=== PATIENT | male | born 1970 | race Caucasian/White ===

== ENCOUNTER 2017-03-12 11:17 | Emergency (ER) | payer SELFPAY ==
[2017-03-12 12:54] VITALS: BP 119/75
== END 2017-03-12 18:04 | disposition left against medical advice (07) ==
LOC: ED 11:17
DX: M54.9 Dorsalgia, unspecified (principal); Z53.21 Procedure and treatment not carried out due to patient leaving prior to being seen by health care provider

== ENCOUNTER 2017-08-18 08:48 | Emergency (ER) | payer MEDICAID ==
--- NOTE | 2017-08-18 10:15 | Emergency Department Report ---
ED Psych HPI - General Chief Complaint: Psych Stated Complaint: [facility] Time Seen by Provider: 08/18/17 09:37 Source: patient, police, EMS Mode of arrival: Ambulatory - History of Present Illness Initial Comments: Mr. Linares presents via EMS. Police were called to a [employer]. Due to odd behavior, he was brought to ER. He denies any symptoms. He continues to ask from something to eat. MD Complaint: altered mental status -: unknown Associated Psychiatric Symptoms: auditory hallucinations, visual hallucinations , delusions - Related Data Allergies Allergy/AdvReac Type Severity Reaction Status Date / Time No Known Allergies Allergy Unverified 03/12/17 12:48 ED Review of Systems ROS: Stated complaint: [facility] Other details as noted in HPI Comment: All other systems reviewed and negative Constitutional: denies: fever, malaise Cardiovascular: denies: chest pain Gastrointestinal: denies: abdominal pain Neurological: denies: headache ED Past Medical Hx - Past Medical History Additional medical history: Back - Social History Smoking Status: Never Smoker Substance Use Type: None ED Physical Exam - General General appearance: alert, in no apparent distress, other (disheveled, dirty clothing, poor hygiene) - Head Head exam: Present: atraumatic, normocephalic - Eye Eye exam: Present: normal appearance - ENT ENT exam: Present: mucous membranes moist - Neck Neck exam: Present: normal inspection - Respiratory Respiratory exam: Present: normal lung sounds bilaterally. Absent: respiratory distress, wheezes, rales, rhonchi - Cardiovascular Cardiovascular Exam: Present: regular rate, normal rhythm, normal heart sounds. Absent: systolic murmur, diastolic murmur, rubs, gallop - GI/Abdominal GI/Abdominal exam: Present: soft, normal bowel sounds. Absent: distended, tenderness, guarding, rebound - Rectal Rectal exam: Present: deferred - Extremities Exam Extremities exam: Present: normal inspection - Back Exam Back exam: Present: normal inspection - Neurological Exam Neurological exam: Present: alert, altered, other (oriented to name situation obviously responding to internal stimuli) - Psychiatric Psychiatric exam: Present: normal affect, normal mood, other (delusional disorganized speech ) - Skin Skin exam: Present: warm, dry, intact, normal color. Absent: rash ED Course Vital Signs 08/18/17 09:18 Temperature 97.3 F L Pulse Rate 100 H Respiratory 18 Rate Blood Pressure 103/81 O2 Sat by Pulse 96 Oximetry ED Medical Decision Making - Lab Data Result diagrams: 08/18/17 13:59 08/18/17 13:59 Laboratory Results - last 24 hr 08/18/17 08/18/17 08/18/17 13:59 13:59 13:59 WBC RBC Hgb Hct MCV MCH MCHC RDW Plt Count Lymph % (Auto) [place] % (Auto) Eos % (Auto) Baso % (Auto) Lymph # [place] # Eos # Baso # Seg Neutrophils % Seg Neutrophils # Sodium 143 Potassium 4.6 Chloride 103.4 Carbon Dioxide 27 Anion Gap 17 BUN 10 Creatinine 0.8 Estimated GFR > 60 BUN/Creatinine Ratio 13 Glucose 100 Calcium 8.8 Urine Color Urine Turbidity Urine pH Ur Specific [place] Urine Protein Urine Glucose (UA) Urine Ketones Urine Blood Urine Nitrite Urine Bilirubin Urine Urobilinogen Ur Leukocyte Esterase Urine WBC (Auto) Urine RBC (Auto) U Epithel Cells (Auto) Urine Mucus Salicylates < 0.3 L Urine Opiates Screen Urine Methadone Screen Acetaminophen < 5.0 L Ur Barbiturates Screen Ur Phencyclidine Scrn Ur Amphetamines Screen U Benzodiazepines Scrn Urine Cocaine Screen U Marijuana (THC) Screen Drugs of Abuse Note Plasma/Serum Alcohol 08/18/17 08/18/17 08/18/17 13:59 13:59 Unknown WBC 7.8 RBC 5.55 H Hgb 13.2 Hct 42.5 MCV 77 L MCH 24 L MCHC 31 L RDW 14.8 Plt Count 329 Lymph % (Auto) 20.2 [place] % (Auto) 6.2 Eos % (Auto) 2.2 Baso % (Auto) 0.6 Lymph # 1.6 [place] # 0.5 Eos # 0.2 Baso # 0.0 Seg Neutrophils % 70.8 H Seg Neutrophils # 5.5 Sodium Potassium Chloride Carbon Dioxide Anion Gap BUN Creatinine Estimated GFR BUN/Creatinine Ratio Glucose Calcium Urine Color Yellow Urine Turbidity Clear Urine pH 8.0 H Ur Specific [place] 1.020 Urine Protein <15 mg/dl Urine Glucose (UA) Neg Urine Ketones Neg Urine Blood Neg Urine Nitrite Neg Urine Bilirubin Neg Urine Urobilinogen 2.0 Ur Leukocyte Esterase Neg Urine WBC (Auto) 1.0 Urine RBC (Auto) 1.0 U Epithel Cells (Auto) < 1.0 Urine Mucus Few Salicylates Urine Opiates Screen Urine Methadone Screen Acetaminophen Ur Barbiturates Screen Ur Phencyclidine Scrn Ur Amphetamines Screen U Benzodiazepines Scrn Urine Cocaine Screen U Marijuana (THC) Screen Drugs of Abuse Note Plasma/Serum Alcohol < 0.01 08/18/17 Unknown WBC RBC Hgb Hct MCV MCH MCHC RDW Plt Count Lymph % (Auto) [place] % (Auto) Eos % (Auto) Baso % (Auto) Lymph # [place] # Eos # Baso # Seg Neutrophils % Seg Neutrophils # Sodium Potassium Chloride Carbon Dioxide Anion Gap BUN Creatinine Estimated GFR BUN/Creatinine Ratio Glucose Calcium Urine Color Urine Turbidity Urine pH Ur Specific [place] Urine Protein Urine Glucose (UA) Urine Ketones Urine Blood Urine Nitrite Urine Bilirubin Urine Urobilinogen Ur Leukocyte Esterase Urine WBC (Auto) Urine RBC (Auto) U Epithel Cells (Auto) Urine Mucus Salicylates Urine Opiates Screen Presumptive negative Urine Methadone Screen Presumptive negative Acetaminophen Ur Barbiturates Screen Presumptive negative Ur Phencyclidine Scrn Presumptive negative Ur Amphetamines Screen Presumptive negative U Benzodiazepines Scrn Presumptive negative Urine Cocaine Screen Presumptive negative U Marijuana (THC) Screen Presumptive negative Drugs of Abuse Note Disclamer Plasma/Serum Alcohol - Medical Decision Making Mr. Linares presents with acute psychosis with delusional thoughts and hallucinations. I suspect homelessness and baseline mental illness. He does not appear to have a medical condition as the cause of psychosis. Placed on 1013 involuntary hold with appropriate precautions. Patient is medically clear for psychiatric care. He will be transferred to inpatient psychiatric facility. Critical care attestation.: If time is entered above; I have spent that time in minutes in the direct care of this critically ill patient, excluding procedure time. ED Disposition Clinical Impression: Acute psychosis Disposition: [id number]/TX-70 ANOTHER TYPE HLTHCARE Is pt being admited?: No Does the pt Need Aspirin: No Condition: Stable Time of Disposition: 14:45
[2017-08-18 10:22] LABS: Bilirubin,Urine NEG (Negative); Blood,Urine NEG (Negative); Color,Urine Yellow (Yellow); Mucus,Urine FEW /HPF; Protein,Urine <15 mg/dL mg/dL (Negative)
[2017-08-18 10:30] LABS: Amphetamine Screen,Urine PRESUMPTIVE NEGATIVE; Benzodiazepines Screen,Urine PRESUMPTIVE NEGATIVE; Cannabinoid Screen,Urine PRESUMPTIVE NEGATIVE; Cocaine Screen,Urine PRESUMPTIVE NEGATIVE; Methadone Screen,Urine PRESUMPTIVE NEGATIVE; Opiate Screen,Urine PRESUMPTIVE NEGATIVE
[2017-08-18] MEDS ORDERED: GEODON IM ONE (11:10)
[2017-08-18] MEDS ORDERED: GEODON IM NR (13:00)
[2017-08-18] MEDS ORDERED: WATER FOR INJ (PF) ONE (13:36)
[2017-08-18 14:23] LABS: Basophils % (Auto) 0.6 % (0.0-1.8); Eosinophils # (Auto) 0.2 K/mm3 (0.0-0.4); Eosinophils % (Auto) 2.2 % (0.0-4.3); Hematocrit 42.5 % (35.5-45.6); Hemoglobin 13.2 gm/dl (11.8-15.2); Lymphocytes # (Auto) 1.6 K/mm3 (1.2-5.4); Lymphocytes % (Auto) 20.2 % (13.4-35.0); Mean Corpuscular HGB Conc 31 % (32-34); Mean Corpuscular Volume 77 fl (84-94); Monocytes # (Auto) 0.5 K/mm3 (0.0-0.8); Monocytes % (Auto) 6.2 % (0.0-7.3); Platelet Count 329 K/mm3 (140-440); Red Blood Count 5.55 M/mm3 (3.65-5.03); Red Cell Distribution Width 14.8 % (13.2-15.2)
[2017-08-18 14:24] LABS: Mean Corpuscular Hemoglobin 24 pg (28-32)
[2017-08-18 14:25] LABS: BUN/Creatinine Ratio 13; Blood Urea Nitrogen 10 mg/dL (9-20); Calcium 8.8 mg/dL (8.4-10.2); Hemolysis Index 13
[2017-08-19 14:08] VITALS: BP 110/68
--- NOTE | 2017-08-19 15:29 | Consultation ---
History of Present Illness - Reason for Consult Consult date: 08/19/17 Reason for consult: Mental Health Evaluation Requesting physician: JENNIE PACHECO - Chief Complaint Chief complaint: "I was just smoking" - History of Present Psychiatric Illness 47 y.o. Aa male presenting to the ER for bizarre behavior. Today the patient is calm during the assessment. He was asked about what happened prior to his admission to the ER, he stated, "I was just smoking." The patient had to be redirected several time to keep him on topic. Throughout the interview, the patient answered all the questioned with the same answer, "I was just smoking. " This patient is not a good historian at this time. Medications and Allergies Allergies Allergy/AdvReac Type Severity Reaction Status Date / Time No Known Allergies Allergy Unverified 03/12/17 12:48 Past psychiatric history - Past Medical History Past Medical History: other (Unable to obtain ) Past Surgical History: Other (Unable to obtain) - past Psychiatric treatment and history psychiatric treatment history: Unable to obtain a psh hx and fam psy hx. - Social History Social history: other (Unable to obtain ) Mental Status Exam - Vital signs Last Vital Signs Temp 98.8 F 08/19/17 09:00 Pulse 82 08/19/17 09:00 Resp 18 08/19/17 09:00 BP 110/68 08/19/17 09:00 Pulse Ox 98 08/19/17 09:00 - Exam Narrative exam: MSE: Appearance: calm Behavior: regular eye contact Speech: regular rate and tone Mood: "okay" Affect: congruent to mood Thought Process: disorganized Thought Content: denies SI/HI's and AVH's Motor Activity: ambulatory Cognition: A/O x 3 Insight: poor Judgment: poor Results Result Diagrams: 08/18/17 13:59 08/18/17 13:59 All other labs normal. Assessment and Plan Assessment and plan: Impression: Unspecified Psychosis. Today the patient is calm during the assessment. UDS is negative. DDx: R/O Schizophrenia, R/O Bipolar DO Recommendation/Plan: Continue 1013 with placement to [facility] today.
== END 2017-08-19 10:10 | disposition other institution (70) ==
LOC: ED 08:48 → EEVIPCON 08:48 → ED 08-19 10:10
DX: F23 Brief psychotic disorder (principal)
CPT/HCPCS: 36415; 80048; 80307; 81001; 85025; 96372; 99285; G0480; J3486; 80320

== ENCOUNTER 2018-06-12 19:16 | Emergency (ER) | payer MEDICARE ==
[2018-06-12 19:50] VITALS: BP 115/88
[2018-06-12] MEDS ORDERED: TORADOL IM ONE (20:39)
== END 2018-06-12 21:40 | disposition left against medical advice (07) ==
LOC: ED 19:16
DX: M54.5 Low back pain (principal); Z53.21 Procedure and treatment not carried out due to patient leaving prior to being seen by health care provider

== ENCOUNTER 2018-06-13 05:55 | Emergency (ER) | payer MEDICARE ==
[2018-06-13 06:12] VITALS: BP 120/74
== END 2018-06-13 06:15 | disposition left against medical advice (07) ==
LOC: ED 05:55
DX: M54.9 Dorsalgia, unspecified (principal); Z53.21 Procedure and treatment not carried out due to patient leaving prior to being seen by health care provider

== ENCOUNTER 2020-11-23 10:18 | Inpatient (IN) | payer MEDICARE ==
--- NOTE | 2020-11-24 09:23 | History and Physical Report ---
GP History & Physical - History of Present Illness Date of admission: 11/23/20 Date of Examination: 11/24/20 Reason for Admission: Danger to self, Failure of Outpatient Treatment, Severe anxiety/depression History of Present Illness: Ariana Linares is a 50y/o male patient whom is known to me. During my evaluation of the patient he is acutely psychotic. He appears irritable. He tells me his name is Moustapha and that Ariana is not his name. He is mumbling to himself. He is guarded and appears paranoid. He says to me "tell those drs to stop playing with me." He says "I don't want nothing and aint got nothing." He then looks at me and says "I'm threw." He doesn't respond to me any more. PAST PSYCHIATRIC HISTORY: Unable to assess PAST MEDICAL HISTORY: None reported or document Family Psychiatric History: None reported or documented SOCIAL HISTORY- Unable to assess REVIEW OF SYSTEMS - Unable to assess MENTAL STATUS EXAMINATION- Unable to assess Assessment and Plan (1) Schizophrenia Disorder Current Visit: Yes Status: Acute Treatment Plan Patient admitted for inpatient psychiatric evaluation, medication adjustment and close monitoring The patient's behavior, mood, sleep and appetite will be closely monitored. Patient enrolled in individual and group therapeutic sessions and encouraged to attend. Patient provided with a safe and structured environment. Patient's physical health needs will be addressed by the Hospitalist. Hospitalist Consulted Labs including CBC, CMP, Lipid profile and Hemoglobin A1C levels ordered for baseline reference Social Assessment will be completed and the Chart Clerk will work with patient and family to ensure a suitable and safe disposition Medication adjustment will be made as clinically indicated Restarted home meds Increased Olanzapine 20mg po qhs Usual Wellness Shinto/Preservation: - Start Trazodone 50 mg po QHS & 50 mg po QHS PRN between 10 PM & 2 AM for insomnia - Start Melatonin 5 mg po QHS to promote circadian rhythm The patient agreed on the treatment plan, understood the risk, benefit, alternative treatment, potential consequence of no treatment, and gave informed consent. Estimated days: 6 Post hospital care: primary care provider, psychiatric provider Case staffed with Dr. Hamm Legal Status: Voluntary Reaction to Hospitalization: Accepting Medications and Allergies Allergies Allergy/AdvReac Type Severity Reaction Status Date / Time No Known Allergies Allergy Unverified 03/12/17 12:48 Home Medications Medication Instructions Recorded Confirmed Last Taken Type Benztropine [Cogentin] 1 mg PO BID 09/28/20 11/24/20 Unknown History Paliperidone Palmitate [Invega 156 mg IM QMONTH 09/28/20 11/24/20 Unknown History Sustenna] ARIPiprazole 5 mg PO QDAY #30 tablet 10/11/20 11/24/20 Unknown Rx FLUoxetine [PROzac] 40 mg PO QDAY #60 capsule 10/11/20 11/24/20 Unknown Rx Nicotine [Habitrol] 14 mg TD QDAY #30 patch 10/11/20 11/24/20 Unknown Rx OLANZapine [Zyprexa] 15 mg PO HS #30 10/11/20 11/24/20 Unknown Rx traZODone [Desyrel] 50 mg PO QHS #30 tablet 10/11/20 11/24/20 Unknown Rx Results - Results Labs/Vitals: Laboratory Last Values POC Glucose 99 mg/dL (70-105) 11/23/20 16:15 Last Vital Signs Temp 97.8 F 11/24/20 07:51 Pulse 79 11/24/20 07:51 Resp 18 11/24/20 07:51 BP 114/87 11/24/20 07:51 Pulse Ox 96 11/24/20 07:51 Physical Examination - Constitutional Vitals: Vital Signs Temp Pulse Resp BP Pulse Ox 97.8 F 79 18 114/87 96 11/24/20 07:51 11/24/20 07:51 11/24/20 07:51 11/24/20 07:51 11/24/20 07:51 Temperature -Last 24 Hours Temperature 97.8 F Temperature 97.9 F Temperature 97.9 F Temperature 98.0 F Mental Status Exam - Vital signs Last Vital Signs Temp 97.8 F 11/24/20 07:51 Pulse 79 11/24/20 07:51 Resp 18 11/24/20 07:51 BP 114/87 11/24/20 07:51 Pulse Ox 96 11/24/20 07:51 Physician Certification - Certification Statement Physician Certification Statement: This is an acknowledgement statement that ARIANA LINARES is a 50 year old M who requires inpatient psychiatric admission for treatment which could reasonably be expected to improve the patient's condition for Estimated period of time patient will need to remain in the hospital: [ ] Plan for post-hospital care: [ ]
[2020-11-24] MEDS: FLUoxetine 20 MG CAP PO SCH (10:44)
[2020-11-24] MEDS: BENZTROPINE 1 MG TAB PO SCH ×2 (10:44→23:04)
[2020-11-24] MEDS: ARIPiprazole 5 MG TAB PO SCH (10:44)
[2020-11-24] MEDS: NICOTINE 14 MG/24 HR PATCH TD SCH (10:47)
[2020-11-24] MEDS ORDERED: PALIPERIDONE PALMITATE 156 MG/ML INJ IM SCH (15:00)
[2020-11-24] MEDS ORDERED: NON-FORMULARY EACH (Olanzapine [Zyprexa] 15 MG Tablet) PO SCH (22:00)
[2020-11-24] MEDS: traZODone 50 MG TAB PO SCH (23:02)
[2020-11-25] MEDS: NICOTINE 14 MG/24 HR PATCH TD SCH ×2 (09:44→09:58)
[2020-11-25] MEDS: FLUoxetine 20 MG CAP PO SCH (09:44)
[2020-11-25] MEDS: ARIPiprazole 5 MG TAB PO SCH (09:44)
[2020-11-25] MEDS: BENZTROPINE 1 MG TAB PO SCH ×2 (09:44→22:14)
--- NOTE | 2020-11-25 10:22 | Progress Note ---
Subjective Date of service: 11/25/20 Principal diagnosis: Schizophrenia Subjective Comment: The patient was seen today. He is still acutely psychotic. He is not speaking today. He is nodding and shaking his head to respond. I ask him why is he not speaking, he replies "I can't talk today." He shakes his head when asking if he's suicidal. When I ask him how was he feeling he nods "yes." REVIEW OF SYSTEMS - Unable to assess MENTAL STATUS EXAMINATION- Unable to assess Assessment and Plan (1) Schizophrenia Disorder Current Visit: Yes Status: Acute Treatment Plan Patient admitted for inpatient psychiatric evaluation, medication adjustment and close monitoring The patient's behavior, mood, sleep and appetite will be closely monitored. Patient enrolled in individual and group therapeutic sessions and encouraged to attend. Patient provided with a safe and structured environment. Patient's physical health needs will be addressed by the Hospitalist. Hospitalist Consulted Labs including CBC, CMP, Lipid profile and Hemoglobin A1C levels ordered for baseline reference Social Assessment will be completed and the Residential Child Care Counselor will work with patient and family to ensure a suitable and safe disposition Medication adjustment will be made as clinically indicated Invega Sustenna given yesterday Increased Olanzapine 20mg po qhs yesterday No changes made today Usual Wellness Episcopal/Preservation: - Start Trazodone 50 mg po QHS & 50 mg po QHS PRN between 10 PM & 2 AM for insomnia - Start Melatonin 5 mg po QHS to promote circadian rhythm The patient agreed on the treatment plan, understood the risk, benefit, alternative treatment, potential consequence of no treatment, and gave informed consent. Estimated days: 6 Post hospital care: primary care provider, psychiatric provider Case staffed with Dr. Hamm Medications and Allergies Allergies Allergy/AdvReac Type Severity Reaction Status Date / Time No Known Allergies Allergy Unverified 03/12/17 12:48 Home Medications Medication Instructions Recorded Confirmed Last Taken Type Benztropine [Cogentin] 1 mg PO BID 09/28/20 11/24/20 Unknown History Paliperidone Palmitate [Invega 156 mg IM QMONTH 09/28/20 11/24/20 Unknown History Sustenna] ARIPiprazole 5 mg PO QDAY #30 tablet 10/11/20 11/24/20 Unknown Rx FLUoxetine [PROzac] 40 mg PO QDAY #60 capsule 10/11/20 11/24/20 Unknown Rx Nicotine [Habitrol] 14 mg TD QDAY #30 patch 10/11/20 11/24/20 Unknown Rx OLANZapine [Zyprexa] 15 mg PO HS #30 10/11/20 11/24/20 Unknown Rx traZODone [Desyrel] 50 mg PO QHS #30 tablet 10/11/20 11/24/20 Unknown Rx Active Meds: Active Medications Aripiprazole (Aripiprazole 5 Mg Tab) 5 mg PO QDAY [facility] Last Admin: 11/25/20 09:44 Dose: 5 mg Documented by: Benztropine Mesylate (Benztropine 1 Mg Tab) 1 mg PO BID [facility] Last Admin: 11/25/20 09:44 Dose: 1 mg Documented by: Fluoxetine HCl (Fluoxetine 20 Mg Cap) 40 mg PO QDAY [facility] Last Admin: 11/25/20 09:44 Dose: 40 mg Documented by: Nicotine (Nicotine 14 Mg/24 Hr Patch) 14 mg TD QDAY [facility] Last Admin: 11/25/20 09:58 Dose: Not Given Documented by: Olanzapine (Olanzapine 10 Mg Tab) 20 mg PO QHS [facility] Last Admin: 11/24/20 23:02 Dose: Not Given Documented by: Trazodone HCl (Trazodone 50 Mg Tab) 50 mg PO QHS [facility] Last Admin: 11/24/20 23:02 Dose: Not Given Documented by: Results - Results Labs/Vitals: Laboratory Last Values POC Glucose 91 mg/dL (70-105) 11/24/20 11:49 Last Vital Signs Temp 98.6 F 11/24/20 20:38 Pulse 74 11/24/20 20:38 Resp 18 11/24/20 20:38 BP 119/77 11/24/20 20:38 Pulse Ox 98 11/24/20 20:38
--- NOTE | 2020-11-25 10:32 | Consultation ---
History of Present Illness - Reason for Consult Consult date: 11/25/20 Medical consult Requesting physician: ALYSON SHORT - History of Present Illness 50-year-old male patient was admitted to [facility] psych unit for evaluation and management of suicidal ideation and homicidal ideation without plan or intent. Patient has multiple medical problems hospitalist service was requested for medical consult. Patient has history of hypertension and ongoing tobacco use. Patient denies any chest pain shortness of breath or cough Denies any headache dizziness weakness or numbness No nausea vomiting or abdominal pain Past History Past Medical History: hypertension Past Surgical History: No surgical history Social history: smoking Family history: no significant family history Medications and Allergies Allergies Allergy/AdvReac Type Severity Reaction Status Date / Time No Known Allergies Allergy Unverified 03/12/17 12:48 Home Medications Medication Instructions Recorded Confirmed Last Taken Type Benztropine [Cogentin] 1 mg PO BID 09/28/20 11/24/20 Unknown History Paliperidone Palmitate [Invega 156 mg IM QMONTH 09/28/20 11/24/20 Unknown History Sustenna] ARIPiprazole 5 mg PO QDAY #30 tablet 10/11/20 11/24/20 Unknown Rx FLUoxetine [PROzac] 40 mg PO QDAY #60 capsule 10/11/20 11/24/20 Unknown Rx Nicotine [Habitrol] 14 mg TD QDAY #30 patch 10/11/20 11/24/20 Unknown Rx OLANZapine [Zyprexa] 15 mg PO HS #30 10/11/20 11/24/20 Unknown Rx traZODone [Desyrel] 50 mg PO QHS #30 tablet 10/11/20 11/24/20 Unknown Rx Active Meds: Active Medications Aripiprazole (Aripiprazole 5 Mg Tab) 5 mg PO QDAY [facility] Last Admin: 11/25/20 09:44 Dose: 5 mg Documented by: Benztropine Mesylate (Benztropine 1 Mg Tab) 1 mg PO BID [facility] Last Admin: 11/25/20 09:44 Dose: 1 mg Documented by: Fluoxetine HCl (Fluoxetine 20 Mg Cap) 40 mg PO QDAY [facility] Last Admin: 11/25/20 09:44 Dose: 40 mg Documented by: Nicotine (Nicotine 14 Mg/24 Hr Patch) 14 mg TD QDAY [facility] Last Admin: 11/25/20 09:58 Dose: Not Given Documented by: Olanzapine (Olanzapine 10 Mg Tab) 20 mg PO QHS [facility] Last Admin: 11/24/20 23:02 Dose: Not Given Documented by: Trazodone HCl (Trazodone 50 Mg Tab) 50 mg PO QHS [facility] Last Admin: 11/24/20 23:02 Dose: Not Given Documented by: Review of Systems Constitutional: other (Dizziness off-and-on), no weight loss, no weight gain Ears, nose, mouth and throat: no nasal congestion, no nasal discharge Cardiovascular: no chest pain, no palpitations Respiratory: no cough, no shortness of breath Genitourinary Male: no hematuria, no flank pain Musculoskeletal: no myalgias, no arthritis Integumentary: no rash, no lesions Neurological: no weakness, no seizures, no syncope Psychiatric: no anxiety, no depression Endocrine: no cold intolerance, no heat intolerance Hematologic/Lymphatic: no easy bruising, no easy bleeding Allergic/Immunologic: no urticaria, no allergic rhinitis Exam - Constitutional Vitals: Temp Pulse Resp BP Pulse Ox 98.6 F 74 18 119/77 98 11/24/20 20:38 11/24/20 20:38 11/24/20 20:38 11/24/20 20:38 11/24/20 20:38 General appearance: Present: no acute distress, well-nourished - EENT Eyes: Present: PERRL, EOM intact - Neck Neck: Present: supple, normal ROM - Respiratory Respiratory effort: normal Respiratory: bilateral: diminished, negative: rales, rhonchi, wheezing - Cardiovascular Rhythm: regular Heart Sounds: Present: S1 & S2 - Extremities Extremities: no ischemia, No edema - Abdominal General gastrointestinal: Present: soft, non-tender, non-distended, normal bowel sounds - Integumentary Integumentary: Present: clear, warm - Musculoskeletal Musculoskeletal: strength equal bilaterally, generalized weakness - Psychiatric Psychiatric: appropriate mood/affect, cooperative - Neurologic Neurologic: CNII-XII intact, moves all extremities Assessment and Plan --Hypertension; well controlled Closely monitor, as needed hydralazine if needed --Ongoing tobacco use; Smoking cessation counseling done, advised nicotine patch --DVT prophylaxis; SCDs while resting, increase his ambulation as permitted We will closely monitor the patient and adjust management as needed Plan of care reviewed with the patient and his nurse Thank you for the consultation, will follow the patient along with you
[2020-11-25] MEDS: traZODone 50 MG TAB PO SCH (22:15)
[2020-11-26] MEDS: BENZTROPINE 1 MG TAB PO SCH (09:27)
[2020-11-26] MEDS: FLUoxetine 20 MG CAP PO SCH (09:27)
[2020-11-26] MEDS: ARIPiprazole 5 MG TAB PO SCH (09:27)
[2020-11-26] MEDS: NICOTINE 14 MG/24 HR PATCH TD SCH (09:37)
--- NOTE | 2020-11-26 10:29 | Progress Note ---
Subjective Date of service: 11/26/20 Principal diagnosis: Schizophrenia Subjective Comment: The patient was seen today. He is talking today and more with it. He has his mattress on the floor and is sleeping on it. He says he feels better on the floor. The patient denies SI/HI or hallucinations. REVIEW OF SYSTEMS - Unable to assess MENTAL STATUS EXAMINATION- Unable to assess Assessment and Plan (1) Schizophrenia Disorder Current Visit: Yes Status: Acute Treatment Plan Patient admitted for inpatient psychiatric evaluation, medication adjustment and close monitoring The patient's behavior, mood, sleep and appetite will be closely monitored. Patient enrolled in individual and group therapeutic sessions and encouraged to attend. Patient provided with a safe and structured environment. Patient's physical health needs will be addressed by the Hospitalist. Hospitalist Consulted Labs including CBC, CMP, Lipid profile and Hemoglobin A1C levels ordered for baseline reference Social Assessment will be completed and the Dental Laboratory Assistant will work with patient and family to ensure a suitable and safe disposition Medication adjustment will be made as clinically indicated Invega Sustenna given 11/24 Usual Wellness Scientology/Preservation: - Start Trazodone 50 mg po QHS & 50 mg po QHS PRN between 10 PM & 2 AM for insomnia - Start Melatonin 5 mg po QHS to promote circadian rhythm The patient agreed on the treatment plan, understood the risk, benefit, alternative treatment, potential consequence of no treatment, and gave informed consent. Estimated days: 6 Post hospital care: primary care provider, psychiatric provider Case staffed with Dr. Hamm Medications and Allergies Allergies Allergy/AdvReac Type Severity Reaction Status Date / Time No Known Allergies Allergy Unverified 03/12/17 12:48 Home Medications Medication Instructions Recorded Confirmed Last Taken Type Benztropine [Cogentin] 1 mg PO BID 09/28/20 11/24/20 Unknown History Paliperidone Palmitate [Invega 156 mg IM QMONTH 09/28/20 11/24/20 Unknown History Sustenna] ARIPiprazole 5 mg PO QDAY #30 tablet 10/11/20 11/24/20 Unknown Rx FLUoxetine [PROzac] 40 mg PO QDAY #60 capsule 10/11/20 11/24/20 Unknown Rx Nicotine [Habitrol] 14 mg TD QDAY #30 patch 10/11/20 11/24/20 Unknown Rx OLANZapine [Zyprexa] 15 mg PO HS #30 10/11/20 11/24/20 Unknown Rx traZODone [Desyrel] 50 mg PO QHS #30 tablet 10/11/20 11/24/20 Unknown Rx Active Meds: Active Medications Aripiprazole (Aripiprazole 5 Mg Tab) 5 mg PO QDAY [facility] Last Admin: 11/26/20 09:27 Dose: 5 mg Documented by: Benztropine Mesylate (Benztropine 1 Mg Tab) 1 mg PO BID [facility] Last Admin: 11/26/20 09:27 Dose: 1 mg Documented by: Fluoxetine HCl (Fluoxetine 20 Mg Cap) 40 mg PO QDAY [facility] Last Admin: 11/26/20 09:27 Dose: 40 mg Documented by: Nicotine (Nicotine 14 Mg/24 Hr Patch) 14 mg TD QDAY [facility] Last Admin: 11/26/20 09:37 Dose: Not Given Documented by: Olanzapine (Olanzapine 10 Mg Tab) 20 mg PO QHS [facility] Last Admin: 11/25/20 22:15 Dose: Not Given Documented by: Trazodone HCl (Trazodone 50 Mg Tab) 50 mg PO QHS [facility] Last Admin: 11/25/20 22:15 Dose: Not Given Documented by: Results - Results Labs/Vitals: Laboratory Last Values POC Glucose 91 mg/dL (70-105) 11/24/20 11:49 Last Vital Signs Temp 98.9 F 11/25/20 19:37 Pulse 80 11/25/20 19:37 Resp 18 11/25/20 19:37 BP 108/65 11/25/20 19:37 Pulse Ox 95 11/25/20 19:37
[2020-11-27] MEDS: traZODone 50 MG TAB PO SCH ×2 (00:39→21:09)
[2020-11-27] MEDS: BENZTROPINE 1 MG TAB PO SCH ×3 (00:39→21:09)
--- NOTE | 2020-11-27 09:38 | Progress Note ---
Subjective Date of service: 11/27/20 Principal diagnosis: Schizophrenia Subjective Comment: The patient was seen today. He is smiling and walking around. He denies hallucinations, but he is observed talking to himself. He denies SI/HI. He says he slept on and off. REVIEW OF SYSTEMS Constitutional: Negative for weight loss ENT: Negative for stridor Respiratory: Negative for cough or hemoptysis All other systems reviewed and are negative MENTAL STATUS EXAMINATION General Appearance and Behavior: Age appropriate, good hygiene, wearing appropriate clothes, fair eye contact Cooperation: Participating/engaged Psychomotor Behavior: Psychomotor normal Mood: okay Affect and affective range: Congruent to stated mood Thought Process: goal Directed Thought Content: hallucinations Speech: normal tone and pace Suicidal Ideation: Denies Homicidal Ideation: Denies Hallucinations: auditory Impulse Control: Questionable Insight and Judgment: Limited Memory: Limited Attention: Normal Orientation: Alert and oriented Assessment and Plan (1) Schizophrenia Disorder Current Visit: Yes Status: Acute Treatment Plan Patient admitted for inpatient psychiatric evaluation, medication adjustment and close monitoring The patient's behavior, mood, sleep and appetite will be closely monitored. Patient enrolled in individual and group therapeutic sessions and encouraged to attend. Patient provided with a safe and structured environment. Patient's physical health needs will be addressed by the Hospitalist. Hospit alist Consulted Labs including CBC, CMP, Lipid profile and Hemoglobin A1C levels ordered for baseline reference Social Assessment will be completed and the [employer] Architect will work with patient and family to ensure a suitable and safe disposition Medication adjustment will be made as clinically indicated Invega Sustenna given 11/24 Increased Trazodone 75mg po qhs Usual Wellness Protestant/Preservation: - Start Trazodone 50 mg po QHS & 50 mg po QHS PRN between 10 PM & 2 AM for insomnia - Start Melatonin 5 mg po QHS to promote circadian rhythm The patient agreed on the treatment plan, understood the risk, benefit, alternative treatment, potential consequence of no treatment, and gave informed consent. Estimated days: 3 Post hospital care: primary care provider, psychiatric provider Case staffed with Dr. Hamm Medications and Allergies Allergies Allergy/AdvReac Type Severity Reaction Status Date / Time No Known Allergies Allergy Unverified 03/12/17 12:48 Home Medications Medication Instructions Recorded Confirmed Last Taken Type Benztropine [Cogentin] 1 mg PO BID 09/28/20 11/24/20 Unknown History Paliperidone Palmitate [Invega 156 mg IM QMONTH 09/28/20 11/24/20 Unknown History Sustenna] ARIPiprazole 5 mg PO QDAY #30 tablet 10/11/20 11/24/20 Unknown Rx FLUoxetine [PROzac] 40 mg PO QDAY #60 capsule 10/11/20 11/24/20 Unknown Rx Nicotine [Habitrol] 14 mg TD QDAY #30 patch 10/11/20 11/24/20 Unknown Rx OLANZapine [Zyprexa] 15 mg PO HS #30 10/11/20 11/24/20 Unknown Rx traZODone [Desyrel] 50 mg PO QHS #30 tablet 10/11/20 11/24/20 Unknown Rx Active Meds: Active Medications Aripiprazole (Aripiprazole 5 Mg Tab) [address] [facility] Last Admin: 11/26/20 09:27 Dose: 5 mg Documented by: Benztropine Mesylate (Benztropine 1 Mg Tab) [address] [facility] Last Admin: 11/27/20 00:39 Dose: Not Given Documented by: Fluoxetine HCl (Fluoxetine 20 Mg Cap) [address] [facility] Last Admin: 11/26/20 09:27 Dose: 40 mg Documented by: Nicotine (Nicotine 14 Mg/24 Hr Patch) [address] [facility] Last Admin: 11/26/20 09:37 Dose: Not Given Documented by: Olanzapine (Olanzapine 10 Mg Tab) [address] [facility] Last Admin: 11/27/20 00:39 Dose: Not Given Documented by: Trazodone HCl (Trazodone 50 Mg Tab) [address] [facility] Last Admin: 11/27/20 00:39 Dose: Not Given Documented by: Results - Results Labs/Vitals: Laboratory Last Values POC Glucose 99 mg/dL (70-105) 11/26/20 15:11 Last Vital Signs Temp 97.8 F 11/26/20 19:45 Pulse 75 11/26/20 19:45 Resp 18 11/26/20 19:45 BP 113/73 11/26/20 19:45 Pulse Ox 97 11/26/20 19:45
[2020-11-27] MEDS: FLUoxetine 20 MG CAP PO SCH (10:20)
[2020-11-27] MEDS: ARIPiprazole 5 MG TAB PO SCH (10:20)
[2020-11-27] MEDS: NICOTINE 14 MG/24 HR PATCH TD SCH (10:21)
--- NOTE | 2020-11-27 15:50 | Progress Note ---
Assessment and Plan Assessment and plan: --h/o Hypertension; well controlled Closely monitor, patient did not need any medications --Ongoing tobacco use; Smoking cessation counseling done, advised nicotine patch as needed --DVT prophylaxis; SCDs while resting, increase his ambulation as permitted We will closely monitor the patient and adjust management as needed Plan of care reviewed with the patient and his nurse Thank you for the consultation, will follow the patient along with you History Interval history: I have seen and examined the patient today Patient feels better no new complaints. No new events reported by the nursing staff Vital signs noted Hospitalist Physical - Constitutional Vitals: Temp Pulse Resp BP Pulse Ox 98.4 F 75 18 111/72 98 11/27/20 07:55 11/27/20 07:55 11/27/20 07:55 11/27/20 07:55 11/27/20 07:55 General appearance: Present: no acute distress, well-nourished - EENT Eyes: Present: PERRL, EOM intact - Neck Neck: Present: supple, normal ROM - Respiratory Respiratory effort: normal Respiratory: bilateral: diminished, negative: rales, rhonchi, wheezing - Cardiovascular Rhythm: regular Heart Sounds: Present: S1 & S2 - Extremities Extremities: no ischemia, No edema - Abdominal General gastrointestinal: soft, non-tender, non-distended, normal bowel sounds - Integumentary Integumentary: Present: clear, warm - Psychiatric Psychiatric: appropriate mood/affect, cooperative - Neurologic Neurologic: CNII-XII intact, moves all extremities Results - Labs Labs: Laboratory Last Values POC Glucose 99 mg/dL (70-105) 11/26/20 15:11 Arnold/IV: Voiding Method Toilet Active Medications - Current Medications Current Medications: Generic Name Dose Route Start Last Admin Trade Name Freq PRN Reason Stop Dose Admin Aripiprazole 5 mg 11/24/20 10:00 11/27/20 10:20 Aripiprazole 5 Mg Tab PO 5 mg QDAY YAJAIRA Administration Benztropine Mesylate 1 mg 11/24/20 10:00 11/27/20 10:20 Benztropine 1 Mg Tab PO 1 mg BID YAJAIRA Administration Fluoxetine HCl 40 mg 11/24/20 10:00 11/27/20 10:20 Fluoxetine 20 Mg Cap PO 40 mg QDAY YAJAIRA Administration Nicotine 14 mg 11/24/20 10:00 11/27/20 10:21 Nicotine 14 Mg/24 Hr Patch TD 14 mg QDAY YAJAIRA Administration Olanzapine 20 mg 11/24/20 22:00 11/27/20 00:39 Olanzapine 10 Mg Tab PO Not Given QHS YAJAIRA Trazodone HCl 75 mg 11/27/20 22:00 Trazodone 50 Mg Tab PO QHS YAJAIRA
[2020-11-28] MEDS: BENZTROPINE 1 MG TAB PO SCH ×3 (09:47→21:47)
[2020-11-28] MEDS: ARIPiprazole 5 MG TAB PO SCH (09:47)
[2020-11-28] MEDS: NICOTINE 14 MG/24 HR PATCH TD SCH (09:47)
[2020-11-28] MEDS: FLUoxetine 20 MG CAP PO SCH (09:47)
--- NOTE | 2020-11-28 10:18 | Progress Note ---
Subjective Date of service: 11/28/20 Principal diagnosis: Schizophrenia Subjective Comment: The patient was seen today. He says he's feeling better. He denies SI/HI. He is seen mumbling to himself. REVIEW OF SYSTEMS Constitutional: Negative for weight loss ENT: Negative for stridor Respiratory: Negative for cough or hemoptysis All other systems reviewed and are negative MENTAL STATUS EXAMINATION General Appearance and Behavior: Age appropriate, good hygiene, wearing appropriate clothes, fair eye contact Cooperation: Participating/engaged Psychomotor Behavior: Psychomotor normal Mood: okay Affect and affective range: Congruent to stated mood Thought Process: goal Directed Thought Content: hallucinations Speech: normal tone and pace Suicidal Ideation: Denies Homicidal Ideation: Denies Hallucinations: auditory Impulse Control: Questionable Insight and Judgment: Limited Memory: Limited Attention: Normal Orientation: Alert and oriented Assessment and Plan (1) Schizophrenia Disorder Current Visit: Yes Status: Acute Treatment Plan Patient admitted for inpatient psychiatric evaluation, medication adjustment and close monitoring The patient's behavior, mood, sleep and appetite will be closely monitored. Patient enrolled in individual and group therapeutic sessions and encouraged to attend. Patient provided with a safe and structured environment. Patient's physical health needs will be addressed by the Hospitalist. Hospitalist Consulted Labs including CBC, CMP, Lipid profile and Hemoglobin A1C levels ordered for baseline reference Social Assessment will be completed and the [employer] Reporter will work with patient and family to ensure a suitable and safe disposition Medication adjustment will be made as clinically indicated Invega Sustenna given 11/24 Increased Trazodone 75mg po qhs yesrerday Usual Wellness Presybeterian/Preservation: - Start Trazodone 50 mg po QHS & 50 mg po QHS PRN between 10 PM & 2 AM for insomnia - Start Melatonin 5 mg po QHS to promote circadian rhythm The patient agreed on the treatment plan, understood the risk, benefit, alternative treatment, potential consequence of no treatment, and gave informed consent. Estimated days: 3 Post hospital care: primary care provider, psychiatric provider Case staffed with Dr. Hamm Medications and Allergies Allergies Allergy/AdvReac Type Severity Reaction Status Date / Time No Known Allergies Allergy Unverified 03/12/17 12:48 Home Medications Medication Instructions Recorded Confirmed Last Taken Type Benztropine [Cogentin] 1 mg PO BID 09/28/20 11/24/20 Unknown History Paliperidone Palmitate [Invega 156 mg IM QMONTH 09/28/20 11/24/20 Unknown History Sustenna] ARIPiprazole 5 mg PO QDAY #30 tablet 10/11/20 11/24/20 Unknown Rx FLUoxetine [PROzac] 40 mg PO QDAY #60 capsule 10/11/20 11/24/20 Unknown Rx Nicotine [Habitrol] 14 mg TD QDAY #30 patch 10/11/20 11/24/20 Unknown Rx OLANZapine [Zyprexa] 15 mg PO HS #30 10/11/20 11/24/20 Unknown Rx traZODone [Desyrel] 50 mg PO QHS #30 tablet 10/11/20 11/24/20 Unknown Rx Active Meds: Active Medications Aripiprazole (Aripiprazole 5 Mg Tab) 5 mg PO QDAY [facility] Last Admin: 11/28/20 09:47 Dose: 5 mg Documented by: Benztropine Mesylate (Benztropine 1 Mg Tab) 1 mg PO BID [facility] Last Admin: 11/28/20 09:47 Dose: 1 mg Documented by: Fluoxetine HCl (Fluoxetine 20 Mg Cap) 40 mg PO QDAY [facility] Last Admin: 11/28/20 09:47 Dose: 40 mg Documented by: Nicotine (Nicotine 14 Mg/24 Hr Patch) 14 mg TD QDAY [facility] Last Admin: 11/28/20 09:47 Dose: 14 mg Documented by: Olanzapine (Olanzapine 10 Mg Tab) 20 mg PO QHS [facility] Last Admin: 11/27/20 21:09 Dose: Not Given Documented by: Trazodone HCl (Trazodone 50 Mg Tab) 75 mg PO QHS [facility] Last Admin: 11/27/20 21:09 Dose: Not Given Documented by: Results - Results Labs/Vitals: Laboratory Last Values POC Glucose 99 mg/dL (70-105) 11/26/20 15:11 Last Vital Signs Temp 97.4 F L 11/28/20 07:50 Pulse 85 11/28/20 07:50 Resp 18 11/28/20 07:50 BP 111/75 11/28/20 07:50 Pulse Ox 98 11/28/20 07:50
--- NOTE | 2020-11-28 16:02 | Progress Note ---
Assessment and Plan - Patient Problems (1) Nicotine dependence Current Visit: Yes Status: Acute Qualifiers: Nicotine product type: cigarettes Substance use status: in withdrawal Qualified Code(s): F17.213 - Nicotine dependence, cigarettes, with withdrawal Plan to address problem: Nicotine transdermal patch, supportive care, (2) Hypertension Current Visit: Yes Status: Acute Qualifiers: Hypertension type: primary hypertension Qualified Code(s): I10 - Essential (primary) hypertension Plan to address problem: Monitor blood pressure every shift, History Interval history: 50 YO Male with Nicotine Dependence, HTN admitted [facility] for psychiatric stabilization. No reported nursing events. Patient denies pain. Hospitalist Physical - Constitutional Vitals: Temp Pulse Resp BP Pulse Ox 97.4 F L 85 18 111/75 98 11/28/20 07:50 11/28/20 07:50 11/28/20 07:50 11/28/20 07:50 11/28/20 07:50 General appearance: Present: no acute distress, well-nourished - EENT Eyes: Present: PERRL, EOM intact ENT: hearing intact - Neck Neck: Present: supple - Respiratory Respiratory effort: normal - Cardiovascular Rhythm: regular Heart Sounds: Present: S1 & S2 - Extremities Extremities: no ischemia Peripheral Pulses: within normal limits - Abdominal General gastrointestinal: soft, non-tender, non-distended - Integumentary Integumentary: Present: clear, dry - Psychiatric Psychiatric: cooperative - Neurologic Neurologic: CNII-XII intact Results - Labs Labs: Laboratory Last Values POC Glucose 99 mg/dL (70-105) 11/26/20 15:11 Arnold/IV: Voiding Method Toilet Active Medications - Current Medications Current Medications: Generic Name Dose Route Start Last Admin Trade Name Freq PRN Reason Stop Dose Admin Aripiprazole 5 mg 11/24/20 10:00 11/28/20 09:47 Aripiprazole 5 Mg Tab PO 5 mg QDAY YAJAIRA Administration Benztropine Mesylate 1 mg 11/24/20 10:00 11/28/20 09:47 Benztropine 1 Mg Tab PO 1 mg BID YAJAIRA Administration Fluoxetine HCl 40 mg 11/24/20 10:00 11/28/20 09:47 Fluoxetine 20 Mg Cap PO 40 mg QDAY YAJAIRA Administration Nicotine 14 mg 11/24/20 10:00 11/28/20 09:47 Nicotine 14 Mg/24 Hr Patch TD 14 mg QDAY YAJAIRA Administration Olanzapine 20 mg 11/24/20 22:00 11/27/20 21:09 Olanzapine 10 Mg Tab PO Not Given QHS YAJAIRA Trazodone HCl 75 mg 11/27/20 22:00 11/27/20 21:09 Trazodone 50 Mg Tab PO Not Given QHS YAJAIRA
[2020-11-28] MEDS: traZODone 50 MG TAB PO SCH ×2 (21:43→21:47)
[2020-11-29] MEDS: ARIPiprazole 5 MG TAB PO SCH ×2 (10:25→12:41)
[2020-11-29] MEDS: FLUoxetine 20 MG CAP PO SCH (10:25)
[2020-11-29] MEDS: BENZTROPINE 1 MG TAB PO SCH ×3 (10:25→21:37)
[2020-11-29] MEDS: NICOTINE 14 MG/24 HR PATCH TD SCH (10:25)
--- NOTE | 2020-11-29 10:53 | Progress Note ---
Subjective Date of service: 11/29/20 Principal diagnosis: Schizophrenia Subjective Comment: The patient was seen today. He says he's feeling better. The patient is responding to internal stimuli. He is distracted as I'm speaking with him and mumbling to himself. He denies SI/HI. REVIEW OF SYSTEMS Constitutional: Negative for weight loss ENT: Negative for stridor Respiratory: Negative for cough or hemoptysis All other systems reviewed and are negative MENTAL STATUS EXAMINATION General Appearance and Behavior: Age appropriate, good hygiene, wearing appropriate clothes, fair eye contact Cooperation: Participating/engaged Psychomotor Behavior: Psychomotor normal Mood: okay Affect and affective range: Congruent to stated mood Thought Process: goal Directed Thought Content: hallucinations Speech: normal tone and pace Suicidal Ideation: Denies Homicidal Ideation: Denies Hallucinations: auditory Impulse Control: Questionable Insight and Judgment: Limited Memory: Limited Attention: Normal Orientation: Alert and oriented Assessment and Plan (1) Schizophrenia Disorder Current Visit: Yes Status: Acute Treatment Plan Patient admitted for inpatient psychiatric evaluation, medication adjustment and close monitoring The patient's behavior, mood, sleep and appetite will be closely monitored. Patient enrolled in individual and group therapeutic sessions and encouraged to attend. Patient provided with a safe and structured environment. Patient's physical health needs will be addressed by the Hospitalist. Hospitalist Consulted Labs including CBC, CMP, Lipid profile and Hemoglobin A1C levels ordered for baseline reference Social Assessment will be completed and the Bag Valver will work with patient and family to ensure a suitable and safe disposition Medication adjustment will be made as clinically indicated Invega Sustenna given 11/24 Increased Abilify 7.5mg po daily Usual Wellness Adventist/Preservation: - Start Trazodone 50 mg po QHS & 50 mg po QHS PRN between 10 PM & 2 AM for insomnia - Start Melatonin 5 mg po QHS to promote circadian rhythm The patient agreed on the treatment plan, understood the risk, benefit, alternative treatment, potential consequence of no treatment, and gave informed consent. Estimated days: 3 Post hospital care: primary care provider, psychiatric provider Case staffed with Dr. Hamm Medications and Allergies Allergies Allergy/AdvReac Type Severity Reaction Status Date / Time No Known Allergies Allergy Unverified 03/12/17 12:48 Home Medications Medication Instructions Recorded Confirmed Last Taken Type Benztropine [Cogentin] 1 mg PO BID 09/28/20 11/24/20 Unknown History Paliperidone Palmitate [Invega 156 mg IM QMONTH 09/28/20 11/24/20 Unknown History Sustenna] ARIPiprazole 5 mg PO QDAY #30 tablet 10/11/20 11/24/20 Unknown Rx FLUoxetine [PROzac] 40 mg PO QDAY #60 capsule 10/11/20 11/24/20 Unknown Rx Nicotine [Habitrol] 14 mg TD QDAY #30 patch 10/11/20 11/24/20 Unknown Rx OLANZapine [Zyprexa] 15 mg PO HS #30 10/11/20 11/24/20 Unknown Rx traZODone [Desyrel] 50 mg PO QHS #30 tablet 10/11/20 11/24/20 Unknown Rx Active Meds: Active Medications Aripiprazole (Aripiprazole 5 Mg Tab) 5 mg PO QDAY [facility] Last Admin: 11/29/20 10:25 Dose: 5 mg Documented by: Benztropine Mesylate (Benztropine 1 Mg Tab) 1 mg PO BID [facility] Last Admin: 11/29/20 10:25 Dose: 1 mg Documented by: Fluoxetine HCl (Fluoxetine 20 Mg Cap) 40 mg PO QDAY [facility] Last Admin: 11/29/20 10:25 Dose: 40 mg Documented by: Nicotine (Nicotine 14 Mg/24 Hr Patch) 14 mg TD QDAY [facility] Last Admin: 11/29/20 10:25 Dose: 14 mg Documented by: Olanzapine (Olanzapine 10 Mg Tab) 20 mg PO QHS [facility] Last Admin: 11/28/20 21:47 Dose: Not Given Documented by: Trazodone HCl (Trazodone 50 Mg Tab) 75 mg PO QHS [facility] Last Admin: 11/28/20 21:47 Dose: Not Given Documented by: Results - Results Labs/Vitals: Laboratory Last Values POC Glucose 99 mg/dL (70-105) 11/26/20 15:11 Last Vital Signs Temp 97.5 F L 11/29/20 08:56 Pulse 90 11/29/20 08:57 Resp 18 11/29/20 08:56 BP 116/66 11/29/20 08:56 Pulse Ox 98 11/29/20 08:57
[2020-11-29] MEDS: traZODone 50 MG TAB PO SCH (21:34)
--- NOTE | 2020-11-30 09:39 | Progress Note ---
Subjective Date of service: 11/30/20 Principal diagnosis: Schizophrenia Subjective Comment: The patient was seen today. He is responding to internal stimuli. He is laughing out loud and smiling inappropriately. He denies hallucinations of any kind. I ask him why he's laughing, he says "I feel good. when am I leaving?" The patient says he hears "stuff on a headset." REVIEW OF SYSTEMS Constitutional: Negative for weight loss ENT: Negative for stridor Respiratory: Negative for cough or hemoptysis All other systems reviewed and are negative MENTAL STATUS EXAMINATION General Appearance and Behavior: Age appropriate, good hygiene, wearing a ppropriate clothes, fair eye contact Cooperation: Participating/engaged Psychomotor Behavior: Psychomotor normal Mood: okay Affect and affective range: Congruent to stated mood Thought Process: goal Directed Thought Content: hallucinations Speech: normal tone and pace Suicidal Ideation: Denies Homicidal Ideation: Denies Hallucinations: auditory Impulse Control: Questionable Insight and Judgment: Limited Memory: Limited Attention: Normal Orientation: Alert and oriented Assessment and Plan (1) Schizophrenia Disorder Current Visit: Yes Status: Acute Treatment Plan Patient admitted for inpatient psychiatric evaluation, medication adjustment and close monitoring The patient's behavior, mood, sleep and appetite will be closely monitored. Patient enrolled in individual and group therapeutic sessions and encouraged to attend. Patient provided with a safe and structured environment. Patient's physical health needs will be addressed by the Hospitalist. Hospitalist Consulted Labs including CBC, CMP, Lipid profile and Hemoglobin A1C levels ordered for baseline reference Social Assessment will be completed and the Public Health Advisor will work with patient and family to ensure a suitable and safe disposition Medication adjustment will be made as clinically indicated Invega Sustenna given 11/24 Increased Abilify 7.5mg po daily yesterday No changes today Usual Wellness [facility]/Preservation: - Start Trazodone 50 mg po QHS & 50 mg po QHS PRN between 10 PM & 2 AM for insomnia - Start Melatonin 5 mg po QHS to promote circadian rhythm The patient agreed on the treatment plan, understood the risk, benefit, altern ative treatment, potential consequence of no treatment, and gave informed consent. Estimated days: 3 Post hospital care: primary care provider, psychiatric provider Case staffed with Dr. Hamm Medications and Allergies Allergies Allergy/AdvReac Type Severity Reaction Status Date / Time No Known Allergies Allergy Unverified 03/12/17 12:48 Home Medications Medication Instructions Recorded Confirmed Last Taken Type Benztropine [Cogentin] 1 mg PO BID 09/28/20 11/24/20 Unknown History Paliperidone Palmitate [Invega 156 mg IM QMONTH 09/28/20 11/24/20 Unknown History Sustenna] ARIPiprazole 5 mg PO QDAY #30 tablet 10/11/20 11/24/20 Unknown Rx FLUoxetine [PROzac] 40 mg PO QDAY #60 capsule 10/11/20 11/24/20 Unknown Rx Nicotine [Habitrol] 14 mg TD QDAY #30 patch 10/11/20 11/24/20 Unknown Rx OLANZapine [Zyprexa] 15 mg PO HS #30 10/11/20 11/24/20 Unknown Rx traZODone [Desyrel] 50 mg PO QHS #30 tablet 10/11/20 11/24/20 Unknown Rx Active Meds: Active Medications Aripiprazole (Aripiprazole 5 Mg Tab) 7.5 mg PO QDAY [facility] Last Admin: 11/29/20 12:41 Dose: Not Given Documented by: Benztropine Mesylate (Benztropine 1 Mg Tab) 1 mg PO BID [facility] Last Admin: 11/29/20 21:37 Dose: Not Given Documented by: Fluoxetine HCl (Fluoxetine 20 Mg Cap) 40 mg PO QDAY [facility] Last Admin: 11/29/20 10:25 Dose: 40 mg Documented by: Nicotine (Nicotine 14 Mg/24 Hr Patch) 14 mg TD QDAY [facility] Last Admin: 11/29/20 10:25 Dose: 14 mg Documented by: Olanzapine (Olanzapine 10 Mg Tab) 20 mg PO QHS [facility] Last Admin: 11/29/20 21:37 Dose: Not Given Documented by: Trazodone HCl (Trazodone 50 Mg Tab) 75 mg PO QHS [facility] Last Admin: 11/29/20 21:34 Dose: 75 mg Documented by: Results - Results Labs/Vitals: Laboratory Last Values POC Glucose 99 mg/dL (70-105) 11/26/20 15:11 Last Vital Signs Temp 98.6 F 11/29/20 21:30 Pulse 84 11/29/20 21:30 Resp 18 11/29/20 21:30 BP 114/77 11/29/20 21:30 Pulse Ox 95 11/29/20 21:30
[2020-11-30] MEDS: ARIPiprazole 5 MG TAB PO SCH (10:49)
[2020-11-30] MEDS: FLUoxetine 20 MG CAP PO SCH (10:49)
[2020-11-30] MEDS: BENZTROPINE 1 MG TAB PO SCH ×2 (10:49→21:31)
[2020-11-30] MEDS: NICOTINE 14 MG/24 HR PATCH TD SCH (10:50)
--- NOTE | 2020-11-30 18:51 | Progress Note ---
Assessment and Plan - Patient Problems (1) Nicotine dependence Current Visit: Yes Status: Acute Qualifiers: Nicotine product type: cigarettes Substance use status: in withdrawal Qualified Code(s): F17.213 - Nicotine dependence, cigarettes, with withdrawal Plan to address problem: Nicotine transdermal patch, supportive care, (2) Hypertension Current Visit: Yes Status: Acute Qualifiers: Hypertension type: primary hypertension Qualified Code(s): I10 - Essential (primary) hypertension Plan to address problem: Monitor blood pressure every shift, History Interval history: 50 YO Male with Nicotine Dependence, HTN admitted to [facility] for psychiatric stabilization. No reported nursing events. Patient denies pain. Hospitalist Physical - Constitutional Vitals: Temp Pulse Resp BP Pulse Ox 98.6 F 84 18 114/77 95 11/29/20 21:30 11/29/20 21:30 11/29/20 21:30 11/29/20 21:30 11/29/20 21:30 General appearance: Present: no acute distress, well-nourished - EENT Eyes: Present: PERRL ENT: hearing intact - Neck Neck: Present: supple - Respiratory Respiratory: bilateral: CTA - Cardiovascular Rhythm: regular Heart Sounds: Present: S1 & S2 - Extremities Extremities: no ischemia Peripheral Pulses: within normal limits - Abdominal General gastrointestinal: soft, non-tender, non-distended - Integumentary Integumentary: Present: clear, dry - Psychiatric Psychiatric: cooperative - Neurologic Neurologic: CNII-XII intact Results - Labs Labs: Laboratory Last Values POC Glucose 99 mg/dL (70-105) 11/26/20 15:11 Arnold/IV: Voiding Method Toilet Active Medications - Current Medications Current Medications: Generic Name Dose Route Start Last Admin Trade Name Eduardoq PRN Reason Stop Dose Admin Aripiprazole 7.5 mg 11/29/20 12:00 11/30/20 10:49 Aripiprazole 5 Mg Tab PO 7.5 mg QDAY YAJAIRA Administration Benztropine Mesylate 1 mg 11/24/20 10:00 11/30/20 10:49 Benztropine 1 Mg Tab PO 1 mg BID YAJAIRA Administration Fluoxetine HCl 40 mg 11/24/20 10:00 11/30/20 10:49 Fluoxetine 20 Mg Cap PO 40 mg QDAY YAJAIRA Administration Nicotine 14 mg 11/24/20 10:00 10/14/21 10:50 Nicotine 14 Mg/24 Hr Patch TD 14 mg QDAY YAJAIRA Administration Olanzapine 20 mg 11/24/20 22:00 11/29/20 21:37 Olanzapine 10 Mg Tab PO Not Given QHS YAJAIRA Trazodone HCl 75 mg 11/27/20 22:00 11/29/20 21:34 Trazodone 50 Mg Tab PO 75 mg QHS YAJAIRA Administration Nutrition/Malnutrition Assess - Dietary Evaluation Nutrition/Malnutrition Findings: Nutrition Notes Start: 11/30/20 16:02 Freq: Status: Active Protocol: Document 11/30/20 16:02 GB (Rec: 11/30/20 16:10 GB [id number]) Nutrition Notes Need for Assessment generated from: LOS Initial or Follow up Assessment Other Pertinent Diagnosis schizophrenia Current Diet Cardiac/carbohydrate consistent Labs/Tests 11/29: unremarkable (glucose only) Pertinent Medications reviewed Height 6 ft Weight 90.9 kg [place] Body Weight (kg) 80.90 BMI 27.1 Weight change and time frame admit weight Weight Status Appropriate Subjective/Other Information PO intake recorded at 75-100% Percent of energy/protein needs met: PO intake of meals meets 100% EEN Burn Absent Trauma Absent GI Symptoms None Food Allergy No Skin Integrity/Comment no complications reported Current % PO Good (75-100%) Minimum of two criteria No #1 Nutrition Diagnosis No nutrition diagnosis at this time Comments: Good po, no reported significant weight loss Is patient on ventilator? No Is Patient Ambulatory and/or Out of Bed Yes REE-([facility]-ambulatory/OOB) [ 2342.600 NUTR.[id number]] Kcal/Kg value to use for calculation 21 Approximate Energy Requirements Using 1909 kcal/Kg Calculation Used for Recommendations Kcal/kg Additional Notes Protein: 0.8-1 g/kg @ 91k -91g Fluids: 1ml/kcal or per MD Nutrition Intervention Change Diet Order: continue Nutrition Support: n/a Add Supplement/Snack (indicate name/kcal n/a /protein ) Goal #1 PO intake of meals to continue 75% or greater daily for LOS Follow-Up By: 01/04/21 Revisit per MD consult or patient Sign Off request:
[2020-11-30] MEDS: traZODone 50 MG TAB PO SCH (21:31)
--- NOTE | 2020-12-01 08:28 | Progress Note ---
Subjective Date of service: 12/01/20 Principal diagnosis: Schizophrenia Subjective Comment: 12/01/2020: The patient was seen today, he reports mood as "ok". He denies any current suicidal/homicidal ideation and denies hallucinations. REVIEW OF SYSTEMS Constitutional: Negative for weight loss ENT: Negative for stridor Respiratory: Negative for cough or hemoptysis All other systems reviewed and are negative MENTAL STATUS EXAMINATION General Appearance and Behavior: Age appropriate, good hygiene, wearing appropriate clothes, fair eye contact Cooperation: Participating/engaged Psychomotor Behavior: Psychomotor normal Mood: okay Affect and affective range: Congruent to stated mood Thought Process: goal Directed Thought Content: Denies Speech: normal tone and pace Suicidal Ideation: Denies Homicidal Ideation: Denies Hallucinations: Denies Impulse Control: Questionable Insight and Judgment: Limited Memory: Limited Attention: Normal Orientation: Alert and oriented Assessment and Plan (1) Schizophrenia Disorder Current Visit: Yes Status: Acute Treatment Plan Patient admitted for inpatient psychiatric evaluation, medication adjustment and close monitoring The patient's behavior, mood, sleep and appetite will be closely monitored. Patient enrolled in individual and group therapeutic sessions and encouraged to attend. Patient provided with a safe and structured environment. Patient's physical health needs will be addressed by the Hospitalist. Hospitalist Consulted Labs including CBC, CMP, Lipid profile and Hemoglobin A1C levels ordered for baseline reference Social Assessment will be completed and the Hooker Up will work with patient and family to ensure a suitable and safe disposition Medication adjustment will be made as clinically indicated Invega Sustenna given 11/24 Continue Abilify 7.5mg po daily yesterday No changes today Usual Wellness [facility]/Preservation: - Start Trazodone 50 mg po QHS & 50 mg po QHS PRN between 10 PM & 2 AM for insomnia - Start Melatonin 5 mg po QHS to promote circadian rhythm The patient agreed on the treatment plan, understood the risk, benefit, alternative treatment, potential consequence of no treatment, and gave informed consent. Estimated days: 3 Post hospital care: primary care provider, psychiatric provider Case staffed with Dr. Hamm Medications and Allergies Medications and Allergies Allergies Allergy/AdvReac Type Severity Reaction Status Date / Time No Known Allergies Allergy Unverified 03/12/17 12:48 Home Medications Medication Instructions Recorded Confirmed Last Taken Type Benztropine [Cogentin] 1 mg PO BID 09/28/20 11/24/20 Unknown History Paliperidone Palmitate [Invega 156 mg IM QMONTH 09/28/20 11/24/20 Unknown History Sustenna] ARIPiprazole 5 mg PO QDAY #30 tablet 10/11/20 11/24/20 Unknown Rx FLUoxetine [PROzac] 40 mg PO QDAY #60 capsule 10/11/20 11/24/20 Unknown Rx Nicotine [Habitrol] 14 mg TD QDAY #30 patch 10/11/20 11/24/20 Unknown Rx OLANZapine [Zyprexa] 15 mg PO HS #30 10/11/20 11/24/20 Unknown Rx traZODone [Desyrel] 50 mg PO QHS #30 tablet 10/11/20 11/24/20 Unknown Rx Active Meds: Active Medications Aripiprazole (Aripiprazole 5 Mg Tab) 7.5 mg PO QDAY [facility] Last Admin: 11/30/20 10:49 Dose: 7.5 mg Documented by: Benztropine Mesylate (Benztropine 1 Mg Tab) 1 mg PO BID [facility] Last Admin: 11/30/20 21:31 Dose: 1 mg Documented by: Fluoxetine HCl (Fluoxetine 20 Mg Cap) 40 mg PO QDAY [facility] Last Admin: 11/30/20 10:49 Dose: 40 mg Documented by: Nicotine (Nicotine 14 Mg/24 Hr Patch) 14 mg TD QDAY [facility] Last Admin: 11/30/20 10:50 Dose: 14 mg Documented by: Olanzapine (Olanzapine 10 Mg Tab) 20 mg PO QHS [facility] Last Admin: 11/30/20 21:32 Dose: 20 mg Documented by: Trazodone HCl (Trazodone 50 Mg Tab) 75 mg PO QHS [facility] Last Admin: 11/30/20 21:31 Dose: 75 mg Documented by: Results - Results Labs/Vitals: Laboratory Last Values POC Glucose 99 mg/dL (70-105) 11/26/20 15:11 Last Vital Signs Temp 97.8 F 11/30/20 20:14 Pulse 93 H 11/30/20 20:14 Resp 18 11/30/20 20:14 BP 118/91 11/30/20 20:14 Pulse Ox 99 11/30/20 20:14
[2020-12-01] MEDS: ARIPiprazole 5 MG TAB PO SCH (09:00)
[2020-12-01] MEDS: BENZTROPINE 1 MG TAB PO SCH ×2 (09:01→23:15)
[2020-12-01] MEDS: NICOTINE 14 MG/24 HR PATCH TD SCH (09:02)
[2020-12-01] MEDS: FLUoxetine 20 MG CAP PO SCH (09:04)
[2020-12-01] MEDS: traZODone 50 MG TAB PO SCH (23:08)
--- NOTE | 2020-12-02 09:03 | Progress Note ---
Subjective Date of service: 12/02/20 Principal diagnosis: Schizophrenia Subjective Comment: 12/01/2020: The patient was seen today, he reports mood as "ok". He denies any current suicidal/homicidal ideation and denies hallucinations. 12/02/2020: The patient was seen eating breakfast, he reports doing well. States sleep and appetite as good. He continues to endorse auditory hallucinations stating " voices up in the [place]." REVIEW OF SYSTEMS Constitutional: Negative for weight loss ENT: Negative for stridor Respiratory: Negative for cough or hemoptysis All other systems reviewed and are negative MENTAL STATUS EXAMINATION General Appearance and Behavior: Age appropriate, good hygiene, wearing appropriate clothes, fair eye contact Cooperation: Participating/engaged Psychomotor Behavior: Psychomotor normal Mood: " doing well" Affect and affective range: Congruent to stated mood Thought Process: goal Directed Thought Content: Denies Speech: normal tone and pace Suicidal Ideation: Denies Homicidal Ideation: Denies Hallucinations: Auditory Impulse Control: Questionable Insight and Judgment: Limited Memory: Limited Attention: Normal Orientation: Alert and oriented Assessment and Plan (1) Schizophrenia Disorder Current Visit: Yes Status: Acute Treatment Plan Patient admitted for inpatient psychiatric evaluation, medication adjustment and close monitoring The patient's behavior, mood, sleep and appetite will be closely monitored. Patient enrolled in individual and group therapeutic sessions and encouraged to attend. Patient provided with a safe and structured environment. Patient's physical health needs will be addressed by the Hospitalist. Hospitalist Consulted Labs including CBC, CMP, Lipid profile and Hemoglobin A1C levels ordered for baseline reference Social Assessment will be completed and the Marine Railway Operator will work with patient and family to ensure a suitable and safe disposition Medication adjustment will be made as clinically indicated Invega Sustenna given 11/24 Continue Abilify 7.5mg po daily yesterday No changes today Usual Wellness [facility]/Preservation: - Start Trazodone 50 mg po QHS & 50 mg po QHS PRN between 10 PM & 2 AM for insomnia - Start Melatonin 5 mg po QHS to promote circadian rhythm The patient agreed on the treatment plan, understood the risk, benefit, alternative treatment, potential consequence of no treatment, and gave informed consent. Estimated days: 3 Post hospital care: primary care provider, psychiatric provider Case staffed with Dr. Hamm Medications and Allergies Medications and Allergies Allergies Allergy/AdvReac Type Severity Reaction Status Date / Time No Known Allergies Allergy Unverified 03/12/17 12:48 Home Medications Medication Instructions Recorded Confirmed Last Taken Type Benztropine [Cogentin] 1 mg PO BID 09/28/20 11/24/20 Unknown History Paliperidone Palmitate [Invega 156 mg IM QMONTH 09/28/20 11/24/20 Unknown History Sustenna] ARIPiprazole 5 mg PO QDAY #30 tablet 10/11/20 11/24/20 Unknown Rx FLUoxetine [PROzac] 40 mg PO QDAY #60 capsule 10/11/20 11/24/20 Unknown Rx Nicotine [Habitrol] 14 mg TD QDAY #30 patch 10/11/20 11/24/20 Unknown Rx OLANZapine [Zyprexa] 15 mg PO HS #30 10/11/20 11/24/20 Unknown Rx traZODone [Desyrel] 50 mg PO QHS #30 tablet 10/11/20 11/24/20 Unknown Rx Active Meds: Active Medications Aripiprazole (Aripiprazole 5 Mg Tab) 7.5 mg PO QDAY [facility] Last Admin: 12/01/20 09:00 Dose: 7.5 mg Documented by: Benztropine Mesylate (Benztropine 1 Mg Tab) 1 mg PO BID [facility] Last Admin: 12/01/20 23:15 Dose: Not Given Documented by: Fluoxetine HCl (Fluoxetine 20 Mg Cap) 40 mg PO QDAY [facility] Last Admin: 12/01/20 09:04 Dose: 40 mg Documented by: Nicotine (Nicotine 14 Mg/24 Hr Patch) 14 mg TD QDAY [facility] Last Admin: 12/01/20 09:02 Dose: 14 mg Documented by: Olanzapine (Olanzapine 10 Mg Tab) 20 mg PO QHS [facility] Last Admin: 12/01/20 23:15 Dose: Not Given Documented by: Trazodone HCl (Trazodone 50 Mg Tab) 75 mg PO QHS [facility] Last Admin: 12/01/20 23:08 Dose: Not Given Documented by: Results - Results Labs/Vitals: Laboratory Last Values POC Glucose 99 mg/dL (70-105) 11/26/20 15:11 Last Vital Signs Temp 99.2 F 12/01/20 19:53 Pulse 103 H 12/01/20 19:53 Resp 16 12/01/20 19:53 BP 109/70 12/01/20 19:53 Pulse Ox 94 12/01/20 19:53
[2020-12-02] MEDS: BENZTROPINE 1 MG TAB PO SCH ×2 (10:35→21:57)
[2020-12-02] MEDS: ARIPiprazole 5 MG TAB PO SCH (10:35)
[2020-12-02] MEDS: FLUoxetine 20 MG CAP PO SCH (10:35)
[2020-12-02] MEDS: NICOTINE 14 MG/24 HR PATCH TD SCH (10:35)
[2020-12-02] MEDS: traZODone 50 MG TAB PO SCH (21:57)
--- NOTE | 2020-12-03 08:02 | Progress Note ---
Subjective Date of service: 12/03/20 Principal diagnosis: Schizophrenia Subjective Comment: 12/01/2020: The patient was seen today, he reports mood as "ok". He denies any current suicidal/homicidal ideation and denies hallucinations. 12/02/2020: The patient was seen eating breakfast, he reports doing well. States sleep and appetite as good. He continues to endorse auditory hallucinations stating " voices up in the [place]." 12/03/2020:The patient was seen eating breakfast, he reports doing well. States sleep and appetite as good. He continues to endorse auditory hallucinations REVIEW OF SYSTEMS Constitutional: Negative for weight loss ENT: Negative for stridor Respiratory: Negative for cough or hemoptysis All other systems reviewed and are negative MENTAL STATUS EXAMINATION General Appearance and Behavior: Age appropriate, good hygiene, wearing appropriate clothes, fair eye contact Cooperation: Participating/engaged Psychomotor Behavior: Psychomotor normal Mood: " doing well" Affect and affective range: Congruent to stated mood Thought Process: goal Directed Thought Content: Denies Speech: normal tone and pace Suicidal Ideation: Denies Homicidal Ideation: Denies Hallucinations: Auditory Impulse Control: Questionable Insight and Judgment: Limited Memory: Limited Attention: Normal Orientation: Alert and oriented Assessment and Plan (1) Schizophrenia Disorder Current Visit: Yes Status: Acute Treatment Plan Patient admitted for inpatient psychiatric evaluation, medication adjustment and close monitoring The patient's behavior, mood, sleep and appetite will be closely monitored. Patient enrolled in individual and group therapeutic sessions and encouraged to attend. Patient provided with a safe and structured environment. Patient's physical health needs will be addressed by the Hospitalist. Hospitalist Consulted Labs including CBC, CMP, Lipid profile and Hemoglobin A1C levels ordered for baseline reference Social Assessment will be completed and the Carbide Operator will work with patient and family to ensure a suitable and safe disposition Medication adjustment will be made as clinically indicated Invega Sustenna given 11/24 Continue Abilify 7.5mg po daily yesterday No changes today Usual Wellness [facility]/Preservation: - Start Trazodone 50 mg po QHS & 50 mg po QHS PRN between 10 PM & 2 AM for insomnia - Start Melatonin 5 mg po QHS to promote circadian rhythm The patient agreed on the treatment plan, understood the risk, benefit, alternative treatment, potential consequence of no treatment, and gave informed consent. Estimated days: 3 Post hospital care: primary care provider, psychiatric provider Case staffed with Dr. Hamm Medications and Allergies Medications and Allergies Medications and Allergies Allergies Allergy/AdvReac Type Severity Reaction Status Date / Time No Known Allergies Allergy Unverified 03/12/17 12:48 Home Medications Medication Instructions Recorded Confirmed Last Taken Type Benztropine [Cogentin] 1 mg PO BID 09/28/20 11/24/20 Unknown History Paliperidone Palmitate [Invega 156 mg IM QMONTH 09/28/20 11/24/20 Unknown History Sustenna] ARIPiprazole 5 mg PO QDAY #30 tablet 10/11/20 11/24/20 Unknown Rx FLUoxetine [PROzac] 40 mg PO QDAY #60 capsule 10/11/20 11/24/20 Unknown Rx Nicotine [Habitrol] 14 mg TD QDAY #30 patch 10/11/20 11/24/20 Unknown Rx OLANZapine [Zyprexa] 15 mg PO HS #30 10/11/20 11/24/20 Unknown Rx traZODone [Desyrel] 50 mg PO QHS #30 tablet 10/11/20 11/24/20 Unknown Rx Active Meds: Active Medications Aripiprazole (Aripiprazole 5 Mg Tab) 7.5 mg PO QDAY [facility] Last Admin: 12/02/20 10:35 Dose: 7.5 mg Documented by: Benztropine Mesylate (Benztropine 1 Mg Tab) 1 mg PO BID [facility] Last Admin: 12/02/20 21:57 Dose: Not Given Documented by: Fluoxetine HCl (Fluoxetine 20 Mg Cap) 40 mg PO QDAY [facility] Last Admin: 12/02/20 10:35 Dose: 40 mg Documented by: Nicotine (Nicotine 14 Mg/24 Hr Patch) 14 mg TD QDAY [facility] Last Admin: 12/02/20 10:35 Dose: 14 mg Documented by: Olanzapine (Olanzapine 10 Mg Tab) 20 mg PO QHS [facility] Last Admin: 12/02/20 21:57 Dose: Not Given Documented by: Trazodone HCl (Trazodone 50 Mg Tab) 75 mg PO QHS [facility] Last Admin: 12/02/20 21:57 Dose: Not Given Documented by: Results - Results Labs/Vitals: Laboratory Last Values POC Glucose 99 mg/dL (70-105) 11/26/20 15:11 Last Vital Signs Temp 100.5 F H 12/02/20 19:52 Pulse 79 12/02/20 19:52 Resp 16 12/02/20 19:52 BP 122/85 12/02/20 19:52 Pulse Ox 98 12/02/20 19:52
[2020-12-03] MEDS: FLUoxetine 20 MG CAP PO SCH (10:24)
[2020-12-03] MEDS: ARIPiprazole 5 MG TAB PO SCH (10:24)
[2020-12-03] MEDS: BENZTROPINE 1 MG TAB PO SCH ×2 (10:24→22:14)
[2020-12-03] MEDS: NICOTINE 14 MG/24 HR PATCH TD SCH (10:25)
--- NOTE | 2020-12-03 12:25 | Progress Note ---
Assessment and Plan - Patient Problems (1) Nicotine dependence Current Visit: Yes Status: Acute Qualifiers: Nicotine product type: cigarettes Substance use status: in withdrawal Qualified Code(s): F17.213 - Nicotine dependence, cigarettes, with withdrawal Plan to address problem: Nicotine transdermal patch, supportive care, (2) Hypertension Current Visit: Yes Status: Acute Qualifiers: Hypertension type: primary hypertension Qualified Code(s): I10 - Essential (primary) hypertension Plan to address problem: Monitor blood pressure every shift, History Interval history: 50 YO Male with Nicotine Dependence, HTN admitted [facility] for psychiatric stabilization. No reported nursing events. Patient denies pain. Hospitalist Physical - Constitutional Vitals: Temp Pulse Resp BP Pulse Ox 98.6 F 90 18 113/81 98 12/03/20 08:01 12/03/20 08:01 12/03/20 08:01 12/03/20 08:01 12/03/20 08:01 General appearance: Present: no acute distress, well-nourished - EENT Eyes: Present: PERRL, EOM intact ENT: hearing intact - Neck Neck: Present: supple - Respiratory Respiratory: bilateral: CTA - Cardiovascular Rhythm: regular Heart Sounds: Present: S1 & S2 - Extremities Extremities: no ischemia Peripheral Pulses: within normal limits - Abdominal General gastrointestinal: soft, non-tender, non-distended - Integumentary Integumentary: Present: clear, dry - Psychiatric Psychiatric: cooperative - Neurologic Neurologic: CNII-XII intact Results - Labs Labs: Laboratory Last Values POC Glucose 99 mg/dL (70-105) 11/26/20 15:11 Arnold/IV: Voiding Method Toilet Active Medications - Current Medications Current Medications: Generic Name Dose Route Start Last Admin Trade Name Freq PRN Reason Stop Dose Admin Aripiprazole 7.5 mg 11/29/20 12:00 12/03/20 10:24 Aripiprazole 5 Mg Tab PO 7.5 mg QDAY YAJAIRA Administration Benztropine Mesylate 1 mg 11/24/20 10:00 12/03/20 10:24 Benztropine 1 Mg Tab PO 1 mg BID YAJAIRA Administration Fluoxetine HCl 40 mg 11/24/20 10:00 12/03/20 10:24 Fluoxetine 20 Mg Cap PO 40 mg QDAY YAJAIRA Administration Nicotine 14 mg 11/24/20 10:00 12/03/20 10:25 Nicotine 14 Mg/24 Hr Patch TD 14 mg QDAY YAJAIRA Administration Olanzapine 20 mg 11/24/20 22:00 12/02/20 21:57 Olanzapine 10 Mg Tab PO Not Given QHS YAJAIRA Trazodone HCl 75 mg 11/27/20 22:00 12/02/20 21:57 Trazodone 50 Mg Tab PO Not Given QHS YAJAIRA Nutrition/Malnutrition Assess - Dietary Evaluation Nutrition/Malnutrition Findings: Nutrition Notes Start: 11/30/20 16:02 Freq: Status: Active Protocol: Document 11/30/20 16:02 GB (Rec: 11/30/20 16:10 GB [id number]) Nutrition Notes Need for Assessment generated from: LOS Initial or Follow up Assessment Other Pertinent Diagnosis schizophrenia Current Diet Cardiac/carbohydrate consistent Labs/Tests 11/29: unremarkable (glucose only) Pertinent Medications reviewed Height 6 ft Weight 90.9 kg [place] Body Weight (kg) 80.90 BMI 27.1 Weight change and time frame admit weight Weight Status Appropriate Subjective/Other Information PO intake recorded at 75-100% Percent of energy/protein needs met: PO intake of meals meets 100% EEN Burn Absent Trauma Absent GI Symptoms None Food Allergy No Skin Integrity/Comment no complications reported Current % PO Good (75-100%) Minimum of two criteria No #1 Nutrition Diagnosis No nutrition diagnosis at this time Comments: Good po, no reported significant weight loss Is patient on ventilator? No Is Patient Ambulatory and/or Out of Bed Yes REE-([facility]-ambulatory/OOB) [ 2342.600 NUTR.MSJOOB] Kcal/Kg value to use for calculation 21 Approximate Energy Requirements Using 1909 kcal/Kg Calculation Used for Recommendations Kcal/kg Additional Notes Protein: 0.8-1 g/kg @ 91k -91g Fluids: 1ml/kcal or per MD Nutrition Intervention Change Diet Order: continue Nutrition Support: n/a Add Supplement/Snack (indicate name/kcal n/a /protein ) Goal #1 PO intake of meals to continue 75% or greater daily for LOS Follow-Up By: 01/04/21 Revisit per MD consult or patient Sign Off request:
--- NOTE | 2020-12-03 12:26 | Progress Note ---
Assessment and Plan - Patient Problems (1) Nicotine dependence Current Visit: Yes Status: Acute Qualifiers: Nicotine product type: cigarettes Substance use status: in withdrawal Qualified Code(s): F17.213 - Nicotine dependence, cigarettes, with withdrawal Plan to address problem: Nicotine transdermal patch, supportive care, (2) Hypertension Current Visit: Yes Status: Acute Qualifiers: Hypertension type: primary hypertension Qualified Code(s): I10 - Essential (primary) hypertension Plan to address problem: Monitor blood pressure every shift, History Interval history: 50 YO Male with Nicotine Dependence, HTN admitted [facility] for psychiatric stabilization. No reported nursing events. Patient denies pain. Hospitalist Physical - Constitutional Vitals: Temp Pulse Resp BP Pulse Ox 98.6 F 90 18 113/81 98 12/03/20 08:01 12/03/20 08:01 12/03/20 08:01 12/03/20 08:01 12/03/20 08:01 General appearance: Present: no acute distress, well-nourished - Neck Neck: Present: supple - Respiratory Respiratory effort: normal Respiratory: bilateral: CTA - Cardiovascular Rhythm: regular Heart Sounds: Present: S1 & S2 - Extremities Extremities: no ischemia Peripheral Pulses: within normal limits - Abdominal General gastrointestinal: soft, non-tender, non-distended - Integumentary Integumentary: Present: clear, dry - Psychiatric Psychiatric: cooperative - Neurologic Neurologic: CNII-XII intact Results - Labs Labs: Laboratory Last Values POC Glucose 99 mg/dL (70-105) 11/26/20 15:11 Arnold/IV: Voiding Method Toilet Active Medications - Current Medications Current Medications: Generic Name Dose Route Start Last Admin Trade Name Eduardoq PRN Reason Stop Dose Admin Aripiprazole 7.5 mg 11/29/20 12:00 12/03/20 10:24 Aripiprazole 5 Mg Tab PO 7.5 mg QDAY YAJAIRA Administration Benztropine Mesylate 1 mg 11/24/20 10:00 12/03/20 10:24 Benztropine 1 Mg Tab PO 1 mg BID YAJAIRA Administration Fluoxetine HCl 40 mg 11/24/20 10:00 12/03/20 10:24 Fluoxetine 20 Mg Cap PO 40 mg QDAY YAJAIRA Administration Nicotine 14 mg 11/24/20 10:00 12/03/20 10:25 Nicotine 14 Mg/24 Hr Patch TD 14 mg QDAY YAJAIRA Administration Olanzapine 20 mg 11/24/20 22:00 12/02/20 21:57 Olanzapine 10 Mg Tab PO Not Given QHS YAJAIRA Trazodone HCl 75 mg 11/27/20 22:00 12/02/20 21:57 Trazodone 50 Mg Tab PO Not Given QHS [facility] Nutrition/Malnutrition Assess - Dietary Evaluation Nutrition/Malnutrition Findings: Nutrition Notes Start: 11/30/20 16:02 Freq: Status: Active Protocol: Document 11/30/20 16:02 GB (Rec: 11/30/20 16:10 GB [id number]) Nutrition Notes Need for Assessment generated from: LOS Initial or Follow up Assessment Other Pertinent Diagnosis schizophrenia Current Diet Cardiac/carbohydrate consistent Labs/Tests 11/29: unremarkable (glucose only) Pertinent Medications reviewed Height 6 ft Weight 90.9 kg [place] Body Weight (kg) 80.90 BMI 27.1 Weight change and time frame admit weight Weight Status Appropriate Subjective/Other Information PO intake recorded at 75-100% Percent of energy/protein needs met: PO intake of meals meets 100% EEN Burn Absent Trauma Absent GI Symptoms None Food Allergy No Skin Integrity/Comment no complications reported Current % PO Good (75-100%) Minimum of two criteria No #1 Nutrition Diagnosis No nutrition diagnosis at this time Comments: Good po, no reported significant weight loss Is patient on ventilator? No Is Patient Ambulatory and/or Out of Bed Yes REE-([place]-ambulatory/OOB) [ 2342.600 NUTR.MSJOOB] Kcal/Kg value to use for calculation 21 Approximate Energy Requirements Using 1909 kcal/Kg Calculation Used for Recommendations Kcal/kg Additional Notes Protein: 0.8-1 g/kg @ 91k -91g Fluids: 1ml/kcal or per MD Nutrition Intervention Change Diet Order: continue Nutrition Support: n/a Add Supplement/Snack (indicate name/kcal n/a /protein ) Goal #1 PO intake of meals to continue 75% or greater daily for LOS Follow-Up By: 01/04/21 Revisit per MD consult or patient Sign Off request:
--- NOTE | 2020-12-03 20:04 | Progress Note ---
Assessment and Plan - Patient Problems (1) Nicotine dependence Current Visit: Yes Status: Acute Qualifiers: Nicotine product type: cigarettes Substance use status: in withdrawal Qualified Code(s): F17.213 - Nicotine dependence, cigarettes, with withdrawal Plan to address problem: Nicotine transdermal patch, supportive care, (2) Hypertension Current Visit: Yes Status: Acute Qualifiers: Hypertension type: primary hypertension Qualified Code(s): I10 - Essential (primary) hypertension Plan to address problem: Monitor blood pressure every shift, History Interval history: 50 YO Male with Nicotine Dependence, HTN admitted [facility] for psychiatric stabilization. No reported nursing events. Patient denies pain. Hospitalist Physical - Constitutional Vitals: Temp Pulse Resp BP Pulse Ox 98.6 F 90 18 113/81 98 12/03/20 08:01 12/03/20 08:01 12/03/20 08:01 12/03/20 08:01 12/03/20 08:01 General appearance: Present: no acute distress, well-nourished - EENT Eyes: Present: PERRL, EOM intact ENT: hearing intact - Neck Neck: Present: supple - Respiratory Respiratory effort: normal Respiratory: bilateral: CTA - Cardiovascular Rhythm: regular Heart Sounds: Present: S1 & S2 - Extremities Extremities: no ischemia Peripheral Pulses: within normal limits - Abdominal General gastrointestinal: soft, non-tender, non-distended - Integumentary Integumentary: Present: clear, dry - Psychiatric Psychiatric: cooperative - Neurologic Neurologic: CNII-XII intact Results - Labs Labs: Laboratory Last Values POC Glucose 99 mg/dL (70-105) 11/26/20 15:11 Arnold/IV: Voiding Method Toilet Active Medications - Current Medications Current Medications: Generic Name Dose Route Start Last Admin Trade Name Freq PRN Reason Stop Dose Admin Aripiprazole 7.5 mg 11/29/20 12:00 12/03/20 10:24 Aripiprazole 5 Mg Tab PO 7.5 mg QDAY YAJAIRA Administration Benztropine Mesylate 1 mg 11/24/20 10:00 12/03/20 10:24 Benztropine 1 Mg Tab PO 1 mg BID YAJAIRA Administration Fluoxetine HCl 40 mg 11/24/20 10:00 12/03/20 10:24 Fluoxetine 20 Mg Cap PO 40 mg QDAY YAJAIRA Administration Nicotine 14 mg 11/24/20 10:00 12/03/20 10:25 Nicotine 14 Mg/24 Hr Patch TD 14 mg QDAY YAJAIRA Administration Olanzapine 20 mg 11/24/20 22:00 12/02/20 21:57 Olanzapine 10 Mg Tab PO Not Given QHS YAJAIRA Trazodone HCl 75 mg 11/27/20 22:00 12/02/20 21:57 Trazodone 50 Mg Tab PO Not Given QHS YAJAIRA Nutrition/Malnutrition Assess - Dietary Evaluation Nutrition/Malnutrition Findings: Nutrition Notes Start: 11/30/20 16:02 Freq: Status: Active Protocol: Document 11/30/20 16:02 GB (Rec: 11/30/20 16:10 GB [id number]) Nutrition Notes Need for Assessment generated from: LOS Initial or Follow up Assessment Other Pertinent Diagnosis schizophrenia Current Diet Cardiac/carbohydrate consistent Labs/Tests 11/29: unremarkable (glucose only) Pertinent Medications reviewed Height 6 ft Weight 90.9 kg [place] Body Weight (kg) 80.90 BMI 27.1 Weight change and time frame admit weight Weight Status Appropriate Subjective/Other Information PO intake recorded at 75-100% Percent of energy/protein needs met: PO intake of meals meets 100% EEN Burn Absent Trauma Absent GI Symptoms None Food Allergy No Skin Integrity/Comment no complications reported Current % PO Good (75-100%) Minimum of two criteria No #1 Nutrition Diagnosis No nutrition diagnosis at this time Comments: Good po, no reported significant weight loss Is patient on ventilator? No Is Patient Ambulatory and/or Out of Bed Yes REE-([facility] or-ambulatory/OOB) [ 2342.600 NUTR.MSJOOB] Kcal/Kg value to use for calculation 21 Approximate Energy Requirements Using 1909 kcal/Kg Calculation Used for Recommendations Kcal/kg Additional Notes Protein: 0.8-1 g/kg @ 91k -91g Fluids: 1ml/kcal or per MD Nutrition Intervention Change Diet Order: continue Nutrition Support: n/a Add Supplement/Snack (indicate name/kcal n/a /protein ) Goal #1 PO intake of meals to continue 75% or greater daily for LOS Follow-Up By: 01/04/21 Revisit per MD consult or patient Sign Off request:
[2020-12-03] MEDS: traZODone 50 MG TAB PO SCH (22:14)
--- NOTE | 2020-12-04 08:43 | Progress Note ---
Subjective Date of service: 12/04/20 Principal diagnosis: Schizophrenia Subjective Comment: 12/01/2020: The patient was seen today, he reports mood as "ok". He denies any current suicidal/homicidal ideation and denies hallucinations. 12/02/2020: The patient was seen eating breakfast, he reports doing well. States sleep and appetite as good. He continues to endorse auditory hallucinations stating " voices up in the [place]." 12/03/2020:The patient was seen eating breakfast, he reports doing well. States sleep and appetite as good. He continues to endorse auditory hallucinations 12/04/2020:The patient reports doing well. States sleep and appetite as good. He denies si/hi/avhs states he only hears the T.V. REVIEW OF SYSTEMS Constitutional: Negative for weight loss ENT: Negative for stridor Respiratory: Negative for cough or hemoptysis All other systems reviewed and are negative MENTAL STATUS EXAMINATION General Appearance and Behavior: Age appropriate, good hygiene, wearing appropriate clothes, fair eye contact Cooperation: Participating/engaged Psychomotor Behavior: Psychomotor normal Mood: " ok" Affect and affective range: Congruent to stated mood Thought Process: goal Directed Thought Content: Denies Speech: normal tone and pace Suicidal Ideation: Denies Homicidal Ideation: Denies Hallucinations: Denies Impulse Control: Questionable Insight and Judgment: Limited Memory: Limited Attention: Normal Orientation: Alert and oriented Assessment and Plan (1) Schizophrenia Disorder Current Visit: Yes Status: Acute Treatment Plan Patient admitted for inpatient psychiatric evaluation, medication adjustment and close monitoring The patient's behavior, mood, sleep and appetite will be closely monitored. Patient enrolled in individual and group therapeutic sessions and encouraged to attend. Patient provided with a safe and structured environment. Patient's physical health needs will be addressed by the Hospitalist. Hospitalist Consulted Labs including CBC, CMP, Lipid profile and Hemoglobin A1C levels ordered for baseline reference Social Assessment will be completed and the Roller Maker will work with patient and family to ensure a suitable and safe disposition Medication adjustment will be made as clinically indicated Invega Sustenna given 11/24 Continue Abilify 7.5mg po daily yesterday No changes today Usual Wellness [employer]/Preservation: - Start Trazodone 50 mg po QHS & 50 mg po QHS PRN between 10 PM & 2 AM for insomnia - Start Melatonin 5 mg po QHS to promote circadian rhythm The patient agreed on the treatment plan, understood the risk, benefit, alternative treatment, potential consequence of no treatment, and gave informed consent. Estimated days: 3 Post hospital care: primary care provider, psychiatric provider Case staffed with Dr. Hamm Medications and Allergies Medications and Allergies Allergies Allergy/AdvReac Type Severity Reaction Status Date / Time No Known Allergies Allergy Unverified 03/12/17 12:48 Home Medications Medication Instructions Recorded Confirmed Last Taken Type Benztropine [Cogentin] 1 mg PO BID 09/28/20 11/24/20 Unknown History Paliperidone Palmitate [Invega 156 mg IM QMONTH 09/28/20 11/24/20 Unknown History Sustenna] ARIPiprazole 5 mg PO QDAY #30 tablet 10/11/20 11/24/20 Unknown Rx FLUoxetine [PROzac] 40 mg PO QDAY #60 capsule 10/11/20 11/24/20 Unknown Rx Nicotine [Habitrol] 14 mg TD QDAY #30 patch 10/11/20 11/24/20 Unknown Rx OLANZapine [Zyprexa] 15 mg PO HS #30 10/11/20 11/24/20 Unknown Rx traZODone [Desyrel] 50 mg PO QHS #30 tablet 10/11/20 11/24/20 Unknown Rx Active Meds: Active Medications Aripiprazole (Aripiprazole 5 Mg Tab) 7.5 mg PO QDAY [facility] Last Admin: 12/03/20 10:24 Dose: 7.5 mg Documented by: Benztropine Mesylate (Benztropine 1 Mg Tab) 1 mg PO BID [facility] Last Admin: 12/03/20 22:14 Dose: Not Given Documented by: Fluoxetine HCl (Fluoxetine 20 Mg Cap) 40 mg PO QDAY [facility] Last Admin: 12/03/20 10:24 Dose: 40 mg Documented by: Nicotine (Nicotine 14 Mg/24 Hr Patch) 14 mg TD QDAY [facility] Last Admin: 12/03/20 10:25 Dose: 14 mg Documented by: Olanzapine (Olanzapine 10 Mg Tab) 20 mg PO QHS [facility] Last Admin: 12/03/20 22:14 Dose: Not Given Documented by: Trazodone HCl (Trazodone 50 Mg Tab) 75 mg PO QHS [facility] Last Admin: 12/03/20 22:14 Dose: Not Given Documented by: Results - Results Labs/Vitals: Laboratory Last Values POC Glucose 99 mg/dL (70-105) 11/26/20 15:11 Last Vital Signs Temp 101.2 F H 12/03/20 19:40 Pulse 85 12/03/20 19:40 Resp 16 12/03/20 19:40 BP 113/84 12/03/20 19:40 Pulse Ox 96 12/03/20 19:40
[2020-12-04] MEDS: FLUoxetine 20 MG CAP PO SCH (09:34)
[2020-12-04] MEDS: ARIPiprazole 5 MG TAB PO SCH (09:34)
[2020-12-04] MEDS: BENZTROPINE 1 MG TAB PO SCH ×2 (09:35→21:28)
[2020-12-04] MEDS: NICOTINE 14 MG/24 HR PATCH TD SCH (09:40)
[2020-12-04] MEDS: traZODone 50 MG TAB PO SCH (21:28)
--- NOTE | 2020-12-05 09:03 | Progress Note ---
Subjective Date of service: 12/05/20 Principal diagnosis: Schizophrenia Subjective Comment: 12/01/2020: The patient was seen today, he reports mood as "ok". He denies any current suicidal/homicidal ideation and denies hallucinations. 12/02/2020: The patient was seen eating breakfast, he reports doing well. States sleep and appetite as good. He continues to endorse auditory hallucinations stating " voices up in the [place]." 12/03/2020:The patient was seen eating breakfast, he reports doing well. States sleep and appetite as good. He continues to endorse auditory hallucinations 12/04/2020:The patient reports doing well. States sleep and appetite as good. He denies si/hi/avhs states he only hears the T.V. 12/05/2020:The patient reports doing well. States sleep and appetite as good. He denies si/hi/avhs. REVIEW OF SYSTEMS Constitutional: Negative for weight loss ENT: Negative for stridor Respiratory: Negative for cough or hemoptysis All other systems reviewed and are negative MENTAL STATUS EXAMINATION General Appearance and Behavior: Age appropriate, good hygiene, wearing appropriate clothes, fair eye contact Cooperation: Participating/engaged Psychomotor Behavior: Psychomotor normal Mood: " ok" Affect and affective range: Congruent to stated mood Thought Process: goal Directed Thought Content: Denies Speech: normal tone and pace Suicidal Ideation: Denies Homicidal Ideation: Denies Hallucinations: Denies Impulse Control: Questionable Insight and Judgment: Limited Memory: Limited Attention: Normal Orientation: Alert and oriented Assessment and Plan (1) Schizophrenia Disorder Current Visit: Yes Status: Acute Treatment Plan Patient admitted for inpatient psychiatric evaluation, medication adjustment and close monitoring The patient's behavior, mood, sleep and appetite will be closely monitored. Patient enrolled in individual and group therapeutic sessions and encouraged to attend. Patient provided with a safe and structured environment. Patient's physical health needs will be addressed by the Hospitalist. Hospitalist Consulted Labs including CBC, CMP, Lipid profile and Hemoglobin A1C levels ordered for baseline reference Social Assessment will be completed and the Linux Admin will work with patient and family to ensure a suitable and safe disposition Medication adjustment will be made as clinically indicated Invega Sustenna given 11/24 Continue Abilify 7.5mg po daily yesterday No changes today Usual Wellness [employer]/Preservation: - Start Trazodone 50 mg po QHS & 50 mg po QHS PRN between 10 PM & 2 AM for insomnia - Start Melatonin 5 mg po QHS to promote circadian rhythm The patient agreed on the treatment plan, understood the risk, benefit, alternative treatment, potential consequence of no treatment, and gave informed consent. Estimated days: 3 Post hospital care: primary care provider, psychiatric provider Case staffed with Dr. Hamm Medications and Allergies Medications and Allergies Allergies Allergy/AdvReac Type Severity Reaction Status Date / Time No Known Allergies Allergy Unverified 03/12/17 12:48 Home Medications Medication Instructions Recorded Confirmed Last Taken Type Benztropine [Cogentin] 1 mg PO BID 09/28/20 11/24/20 Unknown History Paliperidone Palmitate [Invega 156 mg IM QMONTH 09/28/20 11/24/20 Unknown History Sustenna] ARIPiprazole 5 mg PO QDAY #30 tablet 10/11/20 11/24/20 Unknown Rx FLUoxetine [PROzac] 40 mg PO QDAY #60 capsule 10/11/20 11/24/20 Unknown Rx Nicotine [Habitrol] 14 mg TD QDAY #30 patch 10/11/20 11/24/20 Unknown Rx OLANZapine [Zyprexa] 15 mg PO HS #30 10/11/20 11/24/20 Unknown Rx traZODone [Desyrel] 50 mg PO QHS #30 tablet 10/11/20 11/24/20 Unknown Rx Active Meds: Active Medications Aripiprazole (Aripiprazole 5 Mg Tab) 7.5 mg PO QDAY [facility] Last Admin: 12/04/20 09:34 Dose: 7.5 mg Documented by: Benztropine Mesylate (Benztropine 1 Mg Tab) 1 mg PO BID [facility] Last Admin: 12/04/20 21:28 Dose: 1 mg Documented by: Fluoxetine HCl (Fluoxetine 20 Mg Cap) 40 mg PO QDAY [facility] Last Admin: 12/04/20 09:34 Dose: 40 mg Documented by: Nicotine (Nicotine 14 Mg/24 Hr Patch) 14 mg TD QDAY [facility] Last Admin: 12/04/20 09:40 Dose: Not Given Documented by: Olanzapine (Olanzapine 10 Mg Tab) 20 mg PO QHS [facility] Last Admin: 12/04/20 21:28 Dose: 20 mg Documented by: Trazodone HCl (Trazodone 50 Mg Tab) 75 mg PO QHS [facility] Last Admin: 12/04/20 21:28 Dose: 75 mg Documented by: Results - Results Labs/Vitals: Laboratory Last Values POC Glucose 99 mg/dL (70-105) 11/26/20 15:11 Last Vital Signs Temp 97.7 F 12/04/20 19:32 Pulse 79 12/04/20 19:32 Resp 18 12/04/20 19:32 BP 107/83 12/04/20 19:32 Pulse Ox 94 12/04/20 19:32
[2020-12-05] MEDS: FLUoxetine 20 MG CAP PO SCH (09:48)
[2020-12-05] MEDS: ARIPiprazole 5 MG TAB PO SCH (09:48)
[2020-12-05] MEDS: BENZTROPINE 1 MG TAB PO SCH ×2 (09:48→21:04)
[2020-12-05] MEDS: NICOTINE 14 MG/24 HR PATCH TD SCH ×2 (09:49→09:56)
[2020-12-05] MEDS: traZODone 50 MG TAB PO SCH (21:04)
--- NOTE | 2020-12-06 09:03 | Progress Note ---
Subjective Date of service: 12/06/20 Principal diagnosis: Schizophrenia Subjective Comment: 12/01/2020: The patient was seen today, he reports mood as "ok". He denies any current suicidal/homicidal ideation and denies hallucinations. 12/02/2020: The patient was seen eating breakfast, he reports doing well. States sleep and appetite as good. He continues to endorse auditory hallucinations stating " voices up in the [place]." 12/03/2020:The patient was seen eating breakfast, he reports doing well. States sleep and appetite as good. He continues to endorse auditory hallucinations 12/04/2020:The patient reports doing well. States sleep and appetite as good. He denies si/hi/avhs states he only hears the T.V. 12/05/2020:The patient reports doing well. States sleep and appetite as good. He denies si/hi/avhs. 12/06/2020: The patient reports doing well. he is focused on discharge. States sleep and appetite as good. He states "I hear the machine." REVIEW OF SYSTEMS Constitutional: Negative for weight loss ENT: Negative for stridor Respiratory: Negative for cough or hemoptysis All other systems reviewed and are negative MENTAL STATUS EXAMINATION General Appearance and Behavior: Age appropriate, good hygiene, wearing appropriate clothes, fair eye contact Cooperation: Participating/engaged Psychomotor Behavior: Psychomotor normal Mood: " good" Affect and affective range: Congruent to stated mood Thought Process: goal Directed Thought Content: Denies Speech: normal tone and pace Suicidal Ideation: Denies Homicidal Ideation: Denies Hallucinations:Auditory Impulse Control: Questionable Insight and Judgment: Limited Memory: Limited Attention: Normal Orientation: Alert and oriented Assessment and Plan (1) Schizophrenia Disorder Current Visit: Yes Status: Acute Treatment Plan Patient admitted for inpatient psychiatric evaluation, medication adjustment and close monitoring The patient's behavior, mood, sleep and appetite will be closely monitored. Patient enrolled in individual and group therapeutic sessions and encouraged to attend. Patient provided with a safe and structured environment. Patient's physical health needs will be addressed by the Hospitalist. Hospitalist Consulted Labs including CBC, CMP, Lipid profile and Hemoglobin A1C levels ordered for baseline reference Social Assessment will be completed and the Textile Coating Machine Operator will work with romero ent and family to ensure a suitable and safe disposition Medication adjustment will be made as clinically indicated Invega Sustenna given 11/24 Continue Abilify 7.5mg po daily yesterday No changes today Usual Wellness Christianity/Preservation: - Start Trazodone 50 mg po QHS & 50 mg po QHS PRN between 10 PM & 2 AM for insomnia - Start Melatonin 5 mg po QHS to promote circadian rhythm The patient agreed on the treatment plan, understood the risk, benefit, alternative treatment, potential consequence of no treatment, and gave informed consent. Estimated days: 3 Post hospital care: primary care provider, psychiatric provider Case staffed with Dr. Hamm Medications and Allergies Medications and Allergies Allergies Allergy/AdvReac Type Severity Reaction Status Date / Time No Known Allergies Allergy Unverified 03/12/17 12:48 Home Medications Medication Instructions Recorded Confirmed Last Taken Type Benztropine [Cogentin] 1 mg PO BID 09/28/20 11/24/20 Unknown History Paliperidone Palmitate [Invega 156 mg IM QMONTH 09/28/20 11/24/20 Unknown History Sustenna] ARIPiprazole 5 mg PO QDAY #30 tablet 10/11/20 11/24/20 Unknown Rx FLUoxetine [PROzac] 40 mg PO QDAY #60 capsule 10/11/20 11/24/20 Unknown Rx Nicotine [Habitrol] 14 mg TD QDAY #30 patch 10/11/20 11/24/20 Unknown Rx OLANZapine [Zyprexa] 15 mg PO HS #30 10/11/20 11/24/20 Unknown Rx traZODone [Desyrel] 50 mg PO QHS #30 tablet 10/11/20 11/24/20 Unknown Rx Active Meds: Active Medications Aripiprazole (Aripiprazole 5 Mg Tab) 7.5 mg PO QDAY [facility] Last Admin: 12/05/20 09:48 Dose: 7.5 mg Documented by: Benztropine Mesylate (Benztropine 1 Mg Tab) 1 mg PO BID [facility] Last Admin: 12/05/20 21:04 Dose: 1 mg Documented by: Fluoxetine HCl (Fluoxetine 20 Mg Cap) 40 mg PO QDAY [facility] Last Admin: 12/05/20 09:48 Dose: 40 mg Documented by: Nicotine (Nicotine 14 Mg/24 Hr Patch) 14 mg TD QDAY [facility] Last Admin: 12/05/20 09:56 Dose: 14 mg Documented by: Olanzapine (Olanzapine 10 Mg Tab) 20 mg PO QHS [facility] Last Admin: 12/05/20 21:40 Dose: Not Given Documented by: Trazodone HCl (Trazodone 50 Mg Tab) 75 mg PO QHS [facility] Last Admin: 12/05/20 21:04 Dose: 75 mg Documented by: Results - Results Labs/Vitals: Laboratory Last Values POC Glucose 99 mg/dL (70-105) 11/26/20 15:11 Last Vital Signs Temp 98.1 F 12/05/20 19:54 Pulse 82 12/05/20 19:54 Resp 18 12/05/20 19:54 BP 137/84 12/05/20 19:54 Pulse Ox 98 12/05/20 19:54
[2020-12-06] MEDS: ARIPiprazole 5 MG TAB PO SCH (09:14)
[2020-12-06] MEDS: BENZTROPINE 1 MG TAB PO SCH ×2 (09:14→21:44)
[2020-12-06] MEDS: NICOTINE 14 MG/24 HR PATCH TD SCH (09:14)
[2020-12-06] MEDS: FLUoxetine 20 MG CAP PO SCH (09:15)
[2020-12-06] MEDS: traZODone 50 MG TAB PO SCH (21:45)
--- NOTE | 2020-12-07 07:56 | Progress Note ---
Subjective Date of service: 12/07/20 Principal diagnosis: Schizophrenia Subjective Comment: 12/01/2020: The patient was seen today, he reports mood as "ok". He denies any current suicidal/homicidal ideation and denies hallucinations. 12/02/2020: The patient was seen eating breakfast, he reports doing well. States sleep and appetite as good. He continues to endorse auditory hallucinations stating " voices up in the [place]." 12/03/2020:The patient was seen eating breakfast, he reports doing well. States sleep and appetite as good. He continues to endorse auditory hallucinations 12/04/2020:The patient reports doing well. States sleep and appetite as good. He denies si/hi/avhs states he only hears the T.V. 12/05/2020:The patient reports doing well. States sleep and appetite as good. He denies si/hi/avhs. 12/06/2020: The patient reports doing well. he is focused on discharge. States sleep and appetite as good. He states "I hear the machine." 12/07/2020:The patient reports doing well. States sleep and appetite as good. He denies si/hi/avhs REVIEW OF SYSTEMS Constitutional: Negative for weight loss ENT: Negative for stridor Respiratory: Negative for cough or hemoptysis All other systems reviewed and are negative MENTAL STATUS EXAMINATION General Appearance and Behavior: Age appropriate, good hygiene, wearing appropriate clothes, fair eye contact Cooperation: Participating/engaged Psychomotor Behavior: Psychomotor normal Mood: " good" Affect and affective range: Congruent to stated mood Thought Process: goal Directed Thought Content: Denies Speech: normal tone and pace Suicidal Ideation: Denies Homicidal Ideation: Denies Hallucinations:Auditory Impulse Control: Questionable Insight and Judgment: Limited Memory: Limited Attention: Normal Orientation: Alert and oriented Assessment and Plan (1) Schizophrenia Disorder Current Visit: Yes Status: Acute Treatment Plan Patient admitted for inpatient psychiatric evaluation, medication adjustment and close monitoring The patient's behavior, mood, sleep and appetite will be closely monitored. Patient enrolled in individual and group therapeutic sessions and encouraged to attend. Patient provided with a safe and structured environment. Patient's physical health needs will be addressed by the Hospitalist. Hospitalist Consulted Labs including CBC, CMP, Lipid profile and Hemoglobin A1C levels ordered for baseline reference Social Assessment will be completed and the Teacher Nursery School will work with patient and family to ensure a suitable and safe disposition Medication adjustment will be made as clinically indicated Invega Sustenna given 11/24 Continue Abilify 7.5mg po daily yesterday No changes today Usual Wellness Adventist/Preservation: - Start Trazodone 50 mg po QHS & 50 mg po QHS PRN between 10 PM & 2 AM for insomnia - Start Melatonin 5 mg po QHS to promote circadian rhythm The patient agreed on the treatment plan, understood the risk, benefit, alternative treatment, potential consequence of no treatment, and gave informed consent. Estimated days: 3 Post hospital care: primary care provider, psychiatric provider Case staffed with Dr. Hamm Medications and Allergies Allergies Allergy/AdvReac Type Severity Reaction Status Date / Time No Known Allergies Allergy Unverified 03/12/17 12:48 Home Medications Medication Instructions Recorded Confirmed Last Taken Type Benztropine [Cogentin] 1 mg PO BID 09/28/20 11/24/20 Unknown History Paliperidone Palmitate [Invega 156 mg IM QMONTH 09/28/20 11/24/20 Unknown History Sustenna] ARIPiprazole 5 mg PO QDAY #30 tablet 10/11/20 11/24/20 Unknown Rx FLUoxetine [PROzac] 40 mg PO QDAY #60 capsule 10/11/20 11/24/20 Unknown Rx Nicotine [Habitrol] 14 mg TD QDAY #30 patch 10/11/20 11/24/20 Unknown Rx OLANZapine [Zyprexa] 15 mg PO HS #30 10/11/20 11/24/20 Unknown Rx traZODone [Desyrel] 50 mg PO QHS #30 tablet 10/11/20 11/24/20 Unknown Rx Active Meds: Active Medications Aripiprazole (Aripiprazole 5 Mg Tab) 7.5 mg PO QDAY [facility] Last Admin: 12/06/20 09:14 Dose: 7.5 mg Documented by: Benztropine Mesylate (Benztropine 1 Mg Tab) 1 mg PO BID [facility] Last Admin: 12/06/20 21:44 Dose: 1 mg Documented by: Fluoxetine HCl (Fluoxetine 20 Mg Cap) 40 mg PO QDAY [facility] Last Admin: 12/06/20 09:15 Dose: 40 mg Documented by: Nicotine (Nicotine 14 Mg/24 Hr Patch) 14 mg TD QDAY [facility] Last Admin: 12/06/20 09:14 Dose: 14 mg Documented by: Olanzapine (Olanzapine 10 Mg Tab) 20 mg PO QHS [facility] Last Admin: 12/06/20 21:44 Dose: 20 mg Documented by: Trazodone HCl (Trazodone 50 Mg Tab) 75 mg PO QHS [facility] Last Admin: 12/06/20 21:45 Dose: 75 mg Documented by: Results - Results Labs/Vitals: Laboratory Last Values POC Glucose 99 mg/dL (70-105) 11/26/20 15:11 Last Vital Signs Temp 98.7 F 12/06/20 20:02 Pulse 82 12/06/20 20:02 Resp 18 12/06/20 20:02 BP 131/99 12/06/20 20:02 Pulse Ox 97 12/06/20 20:02
[2020-12-07] MEDS: ARIPiprazole 5 MG TAB PO SCH (09:13)
[2020-12-07] MEDS: NICOTINE 14 MG/24 HR PATCH TD SCH (09:13)
[2020-12-07] MEDS: FLUoxetine 20 MG CAP PO SCH (09:13)
[2020-12-07] MEDS: BENZTROPINE 1 MG TAB PO SCH ×2 (09:13→21:28)
[2020-12-07] MEDS: traZODone 50 MG TAB PO SCH (21:28)
[2020-12-08] MEDS: ARIPiprazole 5 MG TAB PO SCH (09:15)
[2020-12-08] MEDS: BENZTROPINE 1 MG TAB PO SCH ×2 (09:15→21:09)
[2020-12-08] MEDS: NICOTINE 14 MG/24 HR PATCH TD SCH (09:15)
[2020-12-08] MEDS: FLUoxetine 20 MG CAP PO SCH (09:15)
--- NOTE | 2020-12-08 11:00 | Progress Note ---
Subjective Date of service: 12/08/20 Principal diagnosis: Schizophrenia Subjective Comment: The patient was seen today. He appears to be better than previous times I saw him. He denies SI/HI or hallucinations. REVIEW OF SYSTEMS Constitutional: Negative for weight loss ENT: Negative for stridor Respiratory: Negative for cough or hemoptysis All other systems reviewed and are negative MENTAL STATUS EXAMINATION General Appearance and Behavior: Age appropriate, good hygiene, wearing appropriate clothes, fair eye contact Cooperation: Participating/engaged Psychomotor Behavior: Psychomotor normal Mood: okay Affect and affective range: Congruent to stated mood Thought Process: goal Directed Thought Content: hallucinations Speech: normal tone and pace Suicidal Ideation: Denies Homicidal Ideation: Denies Hallucinations: auditory Impulse Control: Questionable Insight and Judgment: Limited Memory: Limited Attention: Normal Orientation: Alert and oriented Assessment and Plan (1) Schizophrenia Disorder Current Visit: Yes Status: Acute Treatment Plan Patient admitted for inpatient psychiatric evaluation, medication adjustment and close monitoring The patient's behavior, mood, sleep and appetite will be closely monitored. Patient enrolled in individual and group therapeutic sessions and encouraged to attend. Patient provided with a safe and structured environment. Patient's physical health needs will be addressed by the Hospitalist. Hospitalist Consulted Labs including CBC, CMP, Lipid profile and Hemoglobin A1C levels ordered for baseline reference Social Assessment will be completed and the Pick Up will work with patient and family to ensure a suitable and safe disposition Medication adjustment will be made as clinically indicated No changes today Usual Wellness Catholic/Preservation: - Start Trazodone 50 mg po QHS & 50 mg po QHS PRN between 10 PM & 2 AM for insomnia - Start Melatonin 5 mg po QHS to promote circadian rhythm The patient agreed on the treatment plan, understood the risk, benefit, alternative treatment, potential consequence of no treatment, and gave informed consent. Estimated days: 3 Post hospital care: primary care provider, psychiatric provider Case staffed with Dr. Hamm Medications and Allergies Allergies Allergy/AdvReac Type Severity Reaction Status Date / Time No Known Allergies Allergy Unverified 03/12/17 12:48 Home Medications Medication Instructions Recorded Confirmed Last Taken Type Benztropine [Cogentin] 1 mg PO BID 09/28/20 11/24/20 Unknown History Paliperidone Palmitate [Invega 156 mg IM QMONTH 09/28/20 11/24/20 Unknown History Sustenna] ARIPiprazole 5 mg PO QDAY #30 tablet 10/11/20 11/24/20 Unknown Rx FLUoxetine [PROzac] 40 mg PO QDAY #60 capsule 10/11/20 11/24/20 Unknown Rx Nicotine [Habitrol] 14 mg TD QDAY #30 patch 10/11/20 11/24/20 Unknown Rx OLANZapine [Zyprexa] 15 mg PO HS #30 10/11/20 11/24/20 Unknown Rx traZODone [Desyrel] 50 mg PO QHS #30 tablet 10/11/20 11/24/20 Unknown Rx Active Meds: Active Medications Aripiprazole (Aripiprazole 5 Mg Tab) 7.5 mg PO QDAY [facility] Last Admin: 12/08/20 09:15 Dose: 7.5 mg Documented by: Benztropine Mesylate (Benztropine 1 Mg Tab) 1 mg PO BID [facility] Last Admin: 12/08/20 09:15 Dose: 1 mg Documented by: Fluoxetine HCl (Fluoxetine 20 Mg Cap) 40 mg PO QDAY [facility] Last Admin: 12/08/20 09:15 Dose: 40 mg Documented by: Nicotine (Nicotine 14 Mg/24 Hr Patch) 14 mg TD QDAY [facility] Last Admin: 12/08/20 09:15 Dose: 14 mg Documented by: Olanzapine (Olanzapine 10 Mg Tab) 20 mg PO QHS [facility] Last Admin: 12/07/20 21:28 Dose: 20 mg Documented by: Trazodone HCl (Trazodone 50 Mg Tab) 75 mg PO QHS [facility] Last Admin: 12/07/20 21:28 Dose: 75 mg Documented by: Results - Results Labs/Vitals: Laboratory Last Values POC Glucose 99 mg/dL (70-105) 11/26/20 15:11 Last Vital Signs Temp 98.1 F 12/08/20 05:59 Pulse 74 12/08/20 05:59 Resp 16 12/08/20 05:59 BP 102/76 12/08/20 05:59 Pulse Ox 96 12/08/20 05:59
--- NOTE | 2020-12-08 16:59 | Progress Note ---
Assessment and Plan - Patient Problems (1) Nicotine dependence Current Visit: Yes Status: Acute Qualifiers: Nicotine product type: cigarettes Substance use status: in withdrawal Qualified Code(s): F17.213 - Nicotine dependence, cigarettes, with withdrawal Plan to address problem: Nicotine transdermal patch, supportive care, (2) Hypertension Current Visit: Yes Status: Acute Qualifiers: Hypertension type: primary hypertension Qualified Code(s): I10 - Essential (primary) hypertension Plan to address problem: Monitor blood pressure every shift, History Interval history: 50 YO Male with Nicotine Dependence, HTN admitted to [facility] for psychiatric stabilization. No reported nursing events. Patient denies pain. Hospitalist Physical - Constitutional Vitals: Temp Pulse Resp BP Pulse Ox 98.1 F 74 16 102/76 96 12/08/20 05:59 12/08/20 05:59 12/08/20 05:59 12/08/20 05:59 12/08/20 05:59 General appearance: Present: no acute distress, well-nourished - EENT Eyes: Present: PERRL, EOM intact ENT: hearing intact - Neck Neck: Present: supple - Respiratory Respiratory: bilateral: CTA - Cardiovascular Rhythm: regular Heart Sounds: Present: S1 & S2 - Extremities Extremities: no ischemia Peripheral Pulses: within normal limits - Abdominal General gastrointestinal: soft, non-tender, non-distended - Integumentary Integumentary: Present: clear, dry - Psychiatric Psychiatric: cooperative - Neurologic Neurologic: CNII-XII intact Results - Labs Labs: Laboratory Last Values POC Glucose 99 mg/dL (70-105) 11/26/20 15:11 Arnold/IV: Voiding Method Toilet Active Medications - Current Medications Current Medications: Generic Name Dose Route Start Last Admin Trade Name Freq PRN Reason Stop Dose Admin Aripiprazole 7.5 mg 11/29/20 12:00 12/08/20 09:15 Aripiprazole 5 Mg Tab PO 7.5 mg QDAY [facility] Administration Benztropine Mesylate 1 mg 11/24/20 10:00 12/08/20 09:15 Benztropine 1 Mg Tab PO 1 mg BID YA[facility]A Administration Fluoxetine HCl 40 mg 11/24/20 10:00 12/08/20 09:15 Fluoxetine 20 Mg Cap PO 40 mg QDAY YAJAIRA Administration Nicotine 14 mg 11/24/20 10:00 12/08/20 09:15 Nicotine 14 Mg/24 Hr Patch TD 14 mg QDAY YA[facility]A Administration Olanzapine 20 mg 11/24/20 22:00 12/07/20 21:28 Olanzapine 10 Mg Tab PO 20 mg QHS YAJAIRA Administration Trazodone HCl 75 mg 11/27/20 22:00 12/07/20 21:28 Trazodone 50 Mg Tab PO 75 mg QHS YAJAIRA Administration Nutrition/Malnutrition Assess - Dietary Evaluation Nutrition/Malnutrition Findings: Nutrition Notes Start: 11/30/20 16:02 Freq: Status: Active Protocol: Document 11/30/20 16:02 GB (Rec: 11/30/20 16:10 GB [id number]) Nutrition Notes Need for Assessment generated from: LOS Initial or Follow up Assessment Other Pertinent Diagnosis schizophrenia Current Diet Cardiac/carbohydrate consistent Labs/Tests 11/29: unremarkable (glucose only) Pertinent Medications reviewed Height 6 ft Weight 90.9 kg [place] Body Weight (kg) 80.90 BMI 27.1 Weight change and time frame admit weight Weight Status Appropriate Subjective/Other Information PO intake recorded at 75-100% Percent of energy/protein needs met: PO intake of meals meets 100% EEN Burn Absent Trauma Absent GI Symptoms None Food Allergy No Skin Integrity/Comment no complications reported Current % PO Good (75-100%) Minimum of two criteria No #1 Nutrition Diagnosis No nutrition diagnosis at this time Comments: Good po, no reported significant weight loss Is patient on ventilator? No Is Patient Ambulatory and/or Out of Bed Yes REE-([facility]-ambulatory/OOB) [ 2342.600 NUTR.[id number]] Kcal/Kg value to use for calculation 21 Approximate Energy Requirements Using 1909 kcal/Kg Calculation Used for Recommendations Kcal/kg Additional Notes Protein: 0.8-1 g/kg @ 91k -91g Fluids: 1ml/kcal or per MD Nutrition Intervention Change Diet Order: continue Nutrition Support: n/a Add Supplement/Snack (indicate name/kcal n/a /protein ) Goal #1 PO intake of meals to continue 75% or greater daily for LOS Follow-Up By: 01/04/21 Revisit per MD consult or patient Sign Off request:
[2020-12-08] MEDS: traZODone 50 MG TAB PO SCH (21:10)
[2020-12-09] MEDS: ARIPiprazole 5 MG TAB PO SCH (10:42)
[2020-12-09] MEDS: BENZTROPINE 1 MG TAB PO SCH ×2 (10:43→21:13)
[2020-12-09] MEDS: FLUoxetine 20 MG CAP PO SCH (10:43)
[2020-12-09] MEDS: NICOTINE 14 MG/24 HR PATCH TD SCH (10:43)
--- NOTE | 2020-12-09 10:47 | Progress Note ---
Subjective Date of service: 12/09/20 Principal diagnosis: Schizophrenia Subjective Comment: The patient was seen today. He is smiling. He denies SI/HI, but states at times he still hears voices. He denies them being harmful in nature. The is looking for placement for this patient to ensue continuity of mental wellness and safety upon discharge. REVIEW OF SYSTEMS Constitutional: Negative for weight loss ENT: Negative for stridor Respiratory: Negative for cough or hemoptysis All other systems reviewed and are negative MENTAL STATUS EXAMINATION General Appearance and Behavior: Age appropriate, good hygiene, wearing appropriate clothes, fair eye contact Cooperation: Participating/engaged Psychomotor Behavior: Psychomotor normal Mood: okay Affect and affective range: Congruent to stated mood Thought Process: goal Directed Thought Content: hallucinations Speech: normal tone and pace Suicidal Ideation: Denies Homicidal Ideation: Denies Hallucinations: auditory Impulse Control: Questionable Insight and Judgment: Limited Memory: Limited Attention: Normal Orientation: Alert and oriented Assessment and Plan (1) Schizophrenia Disorder Current Visit: Yes Status: Acute Treatment Plan Patient admitted for inpatient psychiatric evaluation, medication adjustment and close monitoring The patient's behavior, mood, sleep and appetite will be closely monitored. Patient enrolled in individual and group therapeutic sessions and encouraged to attend. Patient provided with a safe and structured environment. Patient's physical health needs will be addressed by the Hospitalist. Hospitalist Consulted Labs including CBC, CMP, Lipid profile and Hemoglobin A1C levels ordered for baseline reference Social Assessment will be completed and the Film And Video Graphics Designer will work with patient and family to ensure a suitable and safe disposition Medication adjustment will be made as clinically indicated No changes today Usual Wellness Sabianism/Preservation: - Start Trazodone 50 mg po QHS & 50 mg po QHS PRN between 10 PM & 2 AM for insomnia - Start Melatonin 5 mg po QHS to promote circadian rhythm The patient agreed on the treatment plan, understood the risk, benefit, alternative treatment, potential consequence of no treatment, and gave informed consent. Estimated days: 3 Post hospital care: primary care provider, psychiatric provider Case staffed with Dr. Hamm Medications and Allergies Allergies Allergy/AdvReac Type Severity Reaction Status Date / Time No Known Allergies Allergy Unverified 03/12/17 12:48 Home Medications Medication Instructions Recorded Confirmed Last Taken Type Benztropine [Cogentin] 1 mg PO BID 09/28/20 11/24/20 Unknown History Paliperidone Palmitate [Invega 156 mg IM QMONTH 09/28/20 11/24/20 Unknown History Sustenna] ARIPiprazole 5 mg PO QDAY #30 tablet 10/11/20 11/24/20 Unknown Rx FLUoxetine [PROzac] 40 mg PO QDAY #60 capsule 10/11/20 11/24/20 Unknown Rx Nicotine [Habitrol] 14 mg TD QDAY #30 patch 10/11/20 11/24/20 Unknown Rx OLANZapine [Zyprexa] 15 mg PO HS #30 10/11/20 11/24/20 Unknown Rx traZODone [Desyrel] 50 mg PO QHS #30 tablet 10/11/20 11/24/20 Unknown Rx Active Meds: Active Medications Aripiprazole (Aripiprazole 5 Mg Tab) 7.5 mg PO QDAY [facility] Last Admin: 12/08/20 09:15 Dose: 7.5 mg Documented by: Benztropine Mesylate (Benztropine 1 Mg Tab) 1 mg PO BID [facility] Last Admin: 12/08/20 21:09 Dose: 1 mg Documented by: Fluoxetine HCl (Fluoxetine 20 Mg Cap) 40 mg PO QDAY [facility] Last Admin: 12/08/20 09:15 Dose: 40 mg Documented by: Nicotine (Nicotine 14 Mg/24 Hr Patch) 14 mg TD QDAY [facility] Last Admin: 12/08/20 09:15 Dose: 14 mg Documented by: Olanzapine (Olanzapine 10 Mg Tab) 20 mg PO QHS [facility] Last Admin: 12/08/20 21:09 Dose: 20 mg Documented by: Trazodone HCl (Trazodone 50 Mg Tab) 75 mg PO QHS [facility] Last Admin: 12/08/20 21:10 Dose: 75 mg Documented by: Results - Results Labs/Vitals: Laboratory Last Values POC Glucose 99 mg/dL (70-105) 11/26/20 15:11 Last Vital Signs Temp 98.1 F 12/08/20 20:02 Pulse 84 12/08/20 20:02 Resp 18 12/08/20 20:02 BP 132/97 12/08/20 20:02 Pulse Ox 98 12/08/20 20:02
[2020-12-09] MEDS: traZODone 50 MG TAB PO SCH (21:13)
[2020-12-10] MEDS: BENZTROPINE 1 MG TAB PO SCH ×2 (09:39→21:07)
[2020-12-10] MEDS: ARIPiprazole 5 MG TAB PO SCH (09:39)
[2020-12-10] MEDS: FLUoxetine 20 MG CAP PO SCH (09:40)
[2020-12-10] MEDS: NICOTINE 14 MG/24 HR PATCH TD SCH (09:40)
--- NOTE | 2020-12-10 10:00 | Progress Note ---
Subjective Date of service: 12/10/20 Principal diagnosis: Schizophrenia Subjective Comment: The patient was seen today. He is eating breakfast. He says he feels okay. The patient says he slept well. He denies SI/HI or hallucinations. He is awaiting placement. REVIEW OF SYSTEMS Constitutional: Negative for weight loss ENT: Negative for stridor Respiratory: Negative for cough or hemoptysis All other systems reviewed and are negative MENTAL STATUS EXAMINATION General Appearance and Behavior: Age appropriate, good hygiene, wearing appropriate clothes, fair eye contact Cooperation: Participating/engaged Psychomotor Behavior: Psychomotor normal Mood: okay Affect and affective range: Congruent to stated mood Thought Process: goal Directed Thought Content: hallucinations Speech: normal tone and pace Suicidal Ideation: Denies Homicidal Ideation: Denies Hallucinations: auditory Impulse Control: Questionable Insight and Judgment: Limited Memory: Limited Attention: Normal Orientation: Alert and oriented Assessment and Plan (1) Schizophrenia Disorder Current Visit: Yes Status: Acute Treatment Plan Patient admitted for inpatient psychiatric evaluation, medication adjustment and close monitoring The patient's behavior, mood, sleep and appetite will be closely monitored. Patient enrolled in individual and group therapeutic sessions and encouraged to attend. Patient provided with a safe and structured environment. Patient's physical health needs will be addressed by the Hospitalist. Hospitalist Consulted Labs including CBC, CMP, Lipid profile and Hemoglobin A1C levels ordered for baseline reference Social Assessment will be completed and the Elder Counselor will work with patient and family to ensure a suitable and safe disposition Medication adjustment will be made as clinically indicated No changes today Usual Wellness Yazidism/Preservation: - Start Trazodone 50 mg po QHS & 50 mg po QHS PRN between 10 PM & 2 AM for insomnia - Start Melatonin 5 mg po QHS to promote circadian rhythm The patient agreed on the treatment plan, understood the risk, benefit, alternative treatment, potential consequence of no treatment, and gave informed consent. Estimated days: 3 Post hospital care: primary care provider, psychiatric provider Case staffed with Dr. Hamm Medications and Allergies Allergies Allergy/AdvReac Type Severity Reaction Status Date / Time No Known Allergies Allergy Unverified 03/12/17 12:48 Home Medications Medication Instructions Recorded Confirmed Last Taken Type Benztropine [Cogentin] 1 mg PO BID 09/28/20 11/24/20 Unknown History Paliperidone Palmitate [Invega 156 mg IM QMONTH 09/28/20 11/24/20 Unknown History Sustenna] ARIPiprazole 5 mg PO QDAY #30 tablet 10/11/20 11/24/20 Unknown Rx FLUoxetine [PROzac] 40 mg PO QDAY #60 capsule 10/11/20 11/24/20 Unknown Rx Nicotine [Habitrol] 14 mg TD QDAY #30 patch 10/11/20 11/24/20 Unknown Rx OLANZapine [Zyprexa] 15 mg PO HS #30 10/11/20 11/24/20 Unknown Rx traZODone [Desyrel] 50 mg PO QHS #30 tablet 10/11/20 11/24/20 Unknown Rx Active Meds: Active Medications Aripiprazole (Aripiprazole 5 Mg Tab) 7.5 mg PO QDAY [facility] Last Admin: 12/10/20 09:39 Dose: 7.5 mg Documented by: Benztropine Mesylate (Benztropine 1 Mg Tab) 1 mg PO BID [facility] Last Admin: 12/10/20 09:39 Dose: 1 mg Documented by: Fluoxetine HCl (Fluoxetine 20 Mg Cap) 40 mg PO QDAY [facility] Last Admin: 12/10/20 09:40 Dose: 40 mg Documented by: Nicotine (Nicotine 14 Mg/24 Hr Patch) 14 mg TD QDAY [facility] Last Admin: 12/10/20 09:40 Dose: Not Given Documented by: Olanzapine (Olanzapine 10 Mg Tab) 20 mg PO QHS [facility] Last Admin: 12/09/20 21:12 Dose: 20 mg Documented by: Trazodone HCl (Trazodone 50 Mg Tab) 75 mg PO QHS [facility] Last Admin: 12/09/20 21:13 Dose: 75 mg Documented by: Results - Results Labs/Vitals: Laboratory Last Values POC Glucose 99 mg/dL (70-105) 11/26/20 15:11 Last Vital Signs Temp 97.9 F 12/09/20 19:46 Pulse 81 12/09/20 19:46 Resp 18 12/09/20 19:46 BP 119/95 12/09/20 19:46 Pulse Ox 97 12/09/20 19:46
--- NOTE | 2020-12-10 18:23 | Progress Note ---
Assessment and Plan - Patient Problems (1) Nicotine dependence Current Visit: Yes Status: Acute Qualifiers: Nicotine product type: cigarettes Substance use status: in withdrawal Qualified Code(s): F17.213 - Nicotine dependence, cigarettes, with withdrawal Plan to address problem: Nicotine transdermal patch, supportive care, (2) Hypertension Current Visit: Yes Status: Acute Qualifiers: Hypertension type: primary hypertension Qualified Code(s): I10 - Essential (primary) hypertension Plan to address problem: Monitor blood pressure every shift, History Interval history: 50 YO Male with Nicotine Dependence, HTN admitted [facility] for psychiatric stabilization. No reported nursing events. Patient denies pain. Hospitalist Physical - Constitutional Vitals: Temp Pulse Resp BP Pulse Ox 97.6 F 86 16 118/77 98 12/10/20 11:03 12/10/20 11:03 12/10/20 11:03 12/10/20 11:03 12/10/20 11:03 General appearance: Present: no acute distress, well-nourished - EENT Eyes: Present: PERRL, EOM intact ENT: hearing intact - Neck Neck: Present: supple - Respiratory Respiratory effort: normal Respiratory: bilateral: CTA - Cardiovascular Rhythm: regular Heart Sounds: Present: S1 & S2 - Extremities Extremities: no ischemia Peripheral Pulses: within normal limits - Abdominal General gastrointestinal: soft, non-tender, non-distended - Integumentary Integumentary: Present: clear, dry - Psychiatric Psychiatric: cooperative - Neurologic Neurologic: CNII-XII intact Results - Labs Labs: Laboratory Last Values POC Glucose 99 mg/dL (70-105) 11/26/20 15:11 Arnold/IV: Voiding Method Toilet Active Medications - Current Medications Current Medications: Generic Name Dose Route Start Last Admin Trade Name Freq PRN Reason Stop Dose Admin Aripiprazole 7.5 mg 11/29/20 12:00 12/10/20 09:39 Aripiprazole 5 Mg Tab PO 7.5 mg QDAY YAJAIRA Administration Benztropine Mesylate 1 mg 11/24/20 10:00 12/10/20 09:39 Benztropine 1 Mg Tab PO 1 mg BID YAJAIRA Administration Fluoxetine HCl 40 mg 11/24/20 10:00 12/10/20 09:40 Fluoxetine 20 Mg Cap PO 40 mg QDAY YAJAIRA Administration Nicotine 14 mg 11/24/20 10:00 12/10/20 09:40 Nicotine 14 Mg/24 Hr Patch TD Not Given QDAY YAJAIRA Olanzapine 20 mg 11/24/20 22:00 12/09/20 21:12 Olanzapine 10 Mg Tab PO 20 mg QHS YAJAIRA Administration Trazodone HCl 75 mg 11/27/20 22:00 12/09/20 21:13 Trazodone 50 Mg Tab PO 75 mg QHS YAJAIRA Administration Nutrition/Malnutrition Assess - Dietary Evaluation Nutrition/Malnutrition Findings: Nutrition Notes Start: 11/30/20 16:02 Freq: Status: Active Protocol: Document 11/30/20 16:02 GB (Rec: 11/30/20 16:10 GB [id number]) Nutrition Notes Need for Assessment generated from: LOS Initial or Follow up Assessment Other Pertinent Diagnosis schizophrenia Current Diet Cardiac/carbohydrate consistent Labs/Tests 11/29: unremarkable (glucose only) Pertinent Medications reviewed Height 6 ft Weight 90.9 kg [place] Body Weight (kg) 80.90 BMI 27.1 Weight change and time frame admit weight Weight Status Appropriate Subjective/Other Information PO intake recorded at 75-100% Percent of energy/protein needs met: PO intake of meals meets 100% EEN Burn Absent Trauma Absent GI Symptoms None Food Allergy No Skin Integrity/Comment no complications reported Current % PO Good (75-100%) Minimum of two criteria No #1 Nutrition Diagnosis No nutrition diagnosis at this time Comments: Good po, no reported significant weight loss Is patient on ventilator? No Is Patient Ambulatory and/or Out of Bed Yes REE-([facility]-ambulatory/OOB) [ 2342.600 NUTR.MSJOOB] Kcal/Kg value to use for calculation 21 Approximate Energy Requirements Using 1909 kcal/Kg Calculation Used for Recommendations Kcal/kg Additional Notes Protein: 0.8-1 g/kg @ 91k -91g Fluids: 1ml/kcal or per MD Nutrition Intervention Change Diet Order: continue Nutrition Support: n/a Add Supplement/Snack (indicate name/kcal n/a /protein ) Goal #1 PO intake of meals to continue 75% or greater daily for LOS Follow-Up By: 01/04/21 Revisit per MD consult or patient Sign Off request:
--- NOTE | 2020-12-10 18:23 | Progress Note ---
Assessment and Plan - Patient Problems (1) Nicotine dependence Current Visit: Yes Status: Acute Qualifiers: Nicotine product type: cigarettes Substance use status: in withdrawal Qualified Code(s): F17.213 - Nicotine dependence, cigarettes, with withdrawal Plan to address problem: Nicotine transdermal patch, supportive care, (2) Hypertension Current Visit: Yes Status: Acute Qualifiers: Hypertension type: primary hypertension Qualified Code(s): I10 - Essential (primary) hypertension Plan to address problem: Monitor blood pressure every shift, History Interval history: 50 YO Male with Nicotine Dependence, HTN admitted [facility] for psychiatric [facility]. No reported nursing events. Patient denies pain. Hospitalist Physical - Constitutional Vitals: Temp Pulse Resp BP Pulse Ox 97.6 F 86 16 118/77 98 12/10/20 11:03 12/10/20 11:03 12/10/20 11:03 12/10/20 11:03 12/10/20 11:03 General appearance: Present: no acute distress, well-nourished - EENT Eyes: Present: PERRL ENT: hearing intact - Neck Neck: Present: supple - Respiratory Respiratory effort: normal Respiratory: bilateral: CTA - Cardiovascular Rhythm: regular Heart Sounds: Present: S1 & S2 - Extremities Extremities: no ischemia Peripheral Pulses: within normal limits - Abdominal General gastrointestinal: soft, non-tender, non-distended - Integumentary Integumentary: Present: clear, dry - Psychiatric Psychiatric: cooperative - Neurologic Neurologic: CNII-XII intact Results - Labs Labs: Laboratory Last Values POC Glucose 99 mg/dL (70-105) 11/26/20 15:11 Arnold/IV: Voiding Method Toilet Active Medications - Current Medications Current Medications: Generic Name Dose Route Start Last Admin Trade Name Freq PRN Reason Stop Dose Admin Aripiprazole 7.5 mg 11/29/20 12:00 12/10/20 09:39 Aripiprazole 5 Mg Tab PO 7.5 mg QDAY YAJAIRA Administration Benztropine Mesylate 1 mg 11/24/20 10:00 12/10/20 09:39 Benztropine 1 Mg Tab PO 1 mg BID YAJAIRA Administration Fluoxetine HCl 40 mg 11/24/20 10:00 12/10/20 09:40 Fluoxetine 20 Mg Cap PO 40 mg QDAY YAJAIRA Administration Nicotine 14 mg 11/24/20 10:00 12/10/20 09:40 Nicotine 14 Mg/24 Hr Patch TD Not Given QDAY YAJAIRA Olanzapine 20 mg 11/24/20 22:00 12/09/20 21:12 Olanzapine 10 Mg Tab PO 20 mg QHS YAJAIRA Administration Trazodone HCl 75 mg 11/27/20 22:00 12/09/20 21:13 Trazodone 50 Mg Tab PO 75 mg QHS YAJAIRA Administration Nutrition/Malnutrition Assess - Dietary Evaluation Nutrition/Malnutrition Findings: Nutrition Notes Start: 11/30/20 16:02 Freq: Status: Active Protocol: Document 11/30/20 16:02 GB (Rec: 11/30/20 16:10 GB [id number]) Nutrition Notes Need for Assessment generated from: LOS Initial or Follow up Assessment Other Pertinent Diagnosis schizophrenia Current Diet Cardiac/carbohydrate consistent Labs/Tests 11/29: unremarkable (glucose only) Pertinent Medications reviewed Height 6 ft Weight 90.9 kg [place] Body Weight (kg) 80.90 BMI 27.1 Weight change and time frame admit weight Weight Status Appropriate Subjective/Other Information PO intake recorded at 75-100% Percent of energy/protein needs met: PO intake of meals meets 100% EEN Burn Absent Trauma Absent GI Symptoms None Food Allergy No Skin Integrity/Comment no complications reported Current % PO Good (75-100%) Minimum of two criteria No #1 Nutrition Diagnosis No nutrition diagnosis at this time Comments: Good po, no reported significant weight loss Is patient on ventilator? No Is Patient Ambulatory and/or Out of Bed Yes REE-([facility]-ambulatory/OOB) [ 2342.600 NUTR.MSJOOB] Kcal/Kg value to use for calculation 21 Approximate Energy Requirements Using 1909 kcal/Kg Calculation Used for Recommendations Kcal/kg Additional Notes Protein: 0.8-1 g/kg @ 91k -91g Fluids: 1ml/kcal or per MD Nutrition Intervention Change Diet Order: continue Nutrition Support: n/a Add Supplement/Snack (indicate name/kcal n/a /protein ) Goal #1 PO intake of meals to continue 75% or greater daily for LOS Follow-Up By: 01/04/21 Revisit per MD consult or patient Sign Off request:
[2020-12-10] MEDS: traZODone 50 MG TAB PO SCH (21:06)
[2020-12-11] MEDS: ARIPiprazole 5 MG TAB PO SCH (09:15)
[2020-12-11] MEDS: BENZTROPINE 1 MG TAB PO SCH ×2 (09:15→21:07)
[2020-12-11] MEDS: FLUoxetine 20 MG CAP PO SCH (09:15)
[2020-12-11] MEDS: NICOTINE 14 MG/24 HR PATCH TD SCH (09:16)
--- NOTE | 2020-12-11 10:24 | Progress Note ---
Subjective Date of service: 12/11/20 Principal diagnosis: Schizophrenia Subjective Comment: The patient was seen today. He says he's doing better. He says sometimes the meds make him feel tired. He denies SI/HI or hallucination of any kind. He say's he's ready to go home. The patient is awaiting placement. The is working on securing a safe place for the patient to discharge to. REVIEW OF SYSTEMS Constitutional: Negative for weight loss ENT: Negative for stridor Respiratory: Negative for cough or hemoptysis All other systems reviewed and are negative MENTAL STATUS EXAMINATION General Appearance and Behavior: Age appropriate, good hygiene, wearing appropriate clothes, fair eye contact Cooperation: Participating/engaged Psychomotor Behavior: Psychomotor normal Mood: okay Affect and affective range: Congruent to stated mood Thought Process: goal Directed Thought Content: None Speech: normal tone and pace Suicidal Ideation: Denies Homicidal Ideation: Denies Hallucinations: Denies Impulse Control: Questionable Insight and Judgment: Limited Memory: Limited Attention: Normal Orientation: Alert and oriented Assessment and Plan (1) Schizophrenia Disorder Current Visit: Yes Status: Acute Treatment Plan Patient admitted for inpatient psychiatric evaluation, medication adjustment and close monitoring The patient's behavior, mood, sleep and appetite will be closely monitored. Patient enrolled in individual and group therapeutic sessions and encouraged to attend. Patient provided with a safe and structured environment. Patient's physical health needs will be addressed by the Hospitalist. Hospitalist Consulted Labs including CBC, CMP, Lipid profile and Hemoglobin A1C levels ordered for baseline reference Social Assessment will be completed and the Croze Cutter will work with patient and family to ensure a suitable and safe disposition Medication adjustment will be made as clinically indicated No changes today Usual Wellness Amish/Preservation: - Start Trazodone 50 mg po QHS & 50 mg po QHS PRN between 10 PM & 2 AM for insomnia - Start Melatonin 5 mg po QHS to promote circadian rhythm The patient agreed on the treatment plan, understood the risk, benefit, alternative treatment, potential consequence of no treatment, and gave informed consent. Estimated days: 3 Post hospital care: primary care provider, psychiatric provider Case staffed with Dr. Hamm Medications and Allergies Allergies Allergy/AdvReac Type Severity Reaction Status Date / Time No Known Allergies Allergy Unverified 03/12/17 12:48 Home Medications Medication Instructions Recorded Confirmed Last Taken Type Benztropine [Cogentin] 1 mg PO BID 09/28/20 11/24/20 Unknown History Paliperidone Palmitate [Invega 156 mg IM QMONTH 09/28/20 11/24/20 Unknown History Sustenna] ARIPiprazole 5 mg PO QDAY #30 tablet 10/11/20 11/24/20 Unknown Rx FLUoxetine [PROzac] 40 mg PO QDAY #60 capsule 10/11/20 11/24/20 Unknown Rx Nicotine [Habitrol] 14 mg TD QDAY #30 patch 10/11/20 11/24/20 Unknown Rx OLANZapine [Zyprexa] 15 mg PO HS #30 10/11/20 11/24/20 Unknown Rx traZODone [Desyrel] 50 mg PO QHS #30 tablet 10/11/20 11/24/20 Unknown Rx Active Meds: Active Medications Aripiprazole (Aripiprazole 5 Mg Tab) 7.5 mg PO QDAY [facility] Last Admin: 12/11/20 09:15 Dose: 7.5 mg Documented by: Benztropine Mesylate (Benztropine 1 Mg Tab) 1 mg PO BID [facility] Last Admin: 12/11/20 09:15 Dose: 1 mg Documented by: Fluoxetine HCl (Fluoxetine 20 Mg Cap) 40 mg PO QDAY [facility] Last Admin: 12/11/20 09:15 Dose: 40 mg Documented by: Nicotine (Nicotine 14 Mg/24 Hr Patch) 14 mg TD QDAY [facility] Last Admin: 12/11/20 09:16 Dose: 14 mg Documented by: Olanzapine (Olanzapine 10 Mg Tab) 20 mg PO QHS [facility] Last Admin: 12/10/20 21:05 Dose: 20 mg Documented by: Trazodone HCl (Trazodone 50 Mg Tab) 75 mg PO QHS [facility] Last Admin: 12/10/20 21:06 Dose: 75 mg Documented by: Results - Results Labs/Vitals: Laboratory Last Values POC Glucose 99 mg/dL (70-105) 11/26/20 15:11 Last Vital Signs Temp 98.6 F 12/10/20 22:00 Pulse 83 12/10/20 22:00 Resp 18 12/10/20 22:00 BP 117/76 12/10/20 22:00 Pulse Ox 98 12/10/20 22:00
[2020-12-11] MEDS: traZODone 50 MG TAB PO SCH (21:07)
[2020-12-12 08:59] VITALS: BP 107/79
[2020-12-12] MEDS: ARIPiprazole 5 MG TAB PO SCH (09:00)
[2020-12-12] MEDS: FLUoxetine 20 MG CAP PO SCH (09:01)
[2020-12-12] MEDS: BENZTROPINE 1 MG TAB PO SCH (09:01)
[2020-12-12] MEDS: NICOTINE 14 MG/24 HR PATCH TD SCH (09:01)
--- NOTE | 2020-12-12 09:45 | Discharge Summary ---
Providers - Providers Date of Admission: 11/23/20 14:49 Date of discharge: 12/12/20 Attending physician: ALYSON SHORT MD 11/23/20 12:00 Consult to Physician [CONS] Routine Comment: Consulting Provider: KUN YA Physician Instructions: Reason For Exam: manage existing medical conditions Primary care physician: FELICITA BAUER Hospitalization Reason for admission: depression Admitting Diagnosis: F20.9 - SCHIZOPHRENIA, UNSPECIFIED Condition: Stable Hospital course: The patient was provided inpatient psychiatric treatment with safe and supportive care, medication adjustment, adverse effect monitoring, medical evaluations, medical treatments, assessment and psycho-education. The patient's mood, cognition, behavior, moral support are improved and stabilized. St the time of discharge, the patient had no endangering behavior and no debilitating adverse effects. The patient agreed on potential consequences of no treatment and gave informed consent. 12/01/2020: The patient was seen today, he reports mood as "ok". He denies any c urrent suicidal/homicidal ideation and denies hallucinations. 12/02/2020: The patient was seen eating breakfast, he reports doing well. States sleep and appetite as good. He continues to endorse auditory hallucinations stating " voices up in the [place]." 12/03/2020:The patient was seen eating breakfast, he reports doing well. States sleep and appetite as good. He continues to endorse auditory hallucinations 12/04/2020:The patient reports doing well. States sleep and appetite as good. He denies si/hi/avhs states he only hears the T.V. 12/05/2020:The patient reports doing well. States sleep and appetite as good. He denies si/hi/avhs. 12/06/2020: The patient reports doing well. he is focused on discharge. States sleep and appetite as good. He states "I hear the machine." 12/07/2020:The patient reports doing well. States sleep and appetite as good. He denies si/hi/avhs 12/08 The patient was seen today. He appears to be better than previous times I saw him. He denies SI/HI or hallucinations. 12/09 The patient was seen today. He is smiling. He denies SI/HI, but states at times he still hears voices. He denies them being harmful in nature. The is looking for placement for this patient to ensue continuity of mental wellness and safety upon discharge. 12/10 The patient was seen today. He is eating breakfast. He says he feels okay. The patient says he slept well. He denies SI/HI or hallucinations. He is awaiting placement. 12/11 The patient was seen today. He says he's doing better. He says sometimes the meds make him feel tired. He denies SI/HI or hallucination of any kind. He say's he's ready to go home. The patient is awaiting placement. The is working on securing a safe place for the patient to discharge to. 12/12 The patient was seen today. He is smiling and asks if he was going home today. He says he feels pretty good. He denies SI/HI or hallucinations of any kind. Disposition: 01 HOME / SELF CARE / HOMELESS Time spent for discharge: 40 Allergies/Adverse Reactions: Allergies No Known Allergies Allergy (Unverified 03/12/17 12:48) Vital Signs: Last Vital Signs Temp 97.7 F 12/12/20 07:26 Pulse 85 12/12/20 07:26 Resp 18 12/12/20 07:26 BP 107/79 12/12/20 07:26 Pulse Ox 97 12/12/20 07:26 Last Lab: Laboratory Last Values POC Glucose 99 mg/dL (70-105) 11/26/20 15:11 Core Measure Documentation - Palliative Care Palliative Care/ Comfort Measures: Not Applicable - Core Measures Any of the following diagnoses?: none Exam - Constitutional Vitals: Temp Pulse Resp BP Pulse Ox 97.7 F 85 18 107/79 97 12/12/20 07:26 12/12/20 07:26 12/12/20 07:26 12/12/20 07:26 12/12/20 07:26 General appearance: Present: no acute distress - EENT Eyes: Present: PERRL, EOM intact ENT: hearing intact, clear oral mucosa - Neck Neck: Present: supple, normal ROM - Respiratory Respiratory effort: normal Plan Activity: advance as tolerated Weight Bearing Status: Weight Bear as Tolerated Care Plan Goals: Maintain good and stable mental health Plan of Treatment: The patient should be compliant with medications, not to use drugs, and not to drink alcohol. The patient understands that if suicidal ideas, homicidal ideas or any endangering feeling arise, the patient should seek assistance including, but not limited to crisis hotline, and emergency room. Assessment: Schizophrenia Follow up with: FELICITA BAUER MD [Primary Care Provider] - 7 Days Prescriptions: traZODone [Desyrel] 75 mg PO QHS #45 tablet OLANzapine [Zyprexa] 20 mg PO QHS #15 tablet ARIPiprazole 7.5 mg PO QDAY #45 tablet
--- NOTE | 2020-12-12 17:56 | Progress Note ---
Assessment and Plan - Patient Problems (1) Nicotine dependence Status: Acute Qualifiers: Nicotine product type: cigarettes Substance use status: in withdrawal Qualified Code(s): F17.213 - Nicotine dependence, cigarettes, with withdrawal Plan to address problem: Nicotine transdermal patch, supportive care, (2) Hypertension Status: Acute Qualifiers: Hypertension type: primary hypertension Qualified Code(s): I10 - Essential (primary) hypertension Plan to address problem: Monitor blood pressure every shift, History Interval history: 50 YO Male with Nicotine Dependence, HTN admitted to [facility] for psychiatric stabilization. No reported nursing events. Patient denies pain. Hospitalist Physical - Constitutional Vitals: Temp Pulse Resp BP Pulse Ox 97.7 F 85 18 107/79 97 12/12/20 07:26 12/12/20 07:26 12/12/20 07:26 12/12/20 07:26 12/12/20 07:26 General appearance: Present: no acute distress - EENT Eyes: Present: PERRL, EOM intact ENT: hearing intact - Neck Neck: Present: supple - Respiratory Respiratory effort: normal Respiratory: bilateral: CTA - Cardiovascular Rhythm: regular Heart Sounds: Present: S1 & S2 - Extremities Extremities: no ischemia Peripheral Pulses: within normal limits - Abdominal General gastrointestinal: soft, non-tender, non-distended - Integumentary Integumentary: Present: clear, dry - Psychiatric Psychiatric: appropriate mood/affect, cooperative - Neurologic Neurologic: CNII-XII intact Results - Labs Labs: Laboratory Last Values POC Glucose 99 mg/dL (70-105) 11/26/20 15:11 Arnold/IV: Voiding Method Toilet Nutrition/Malnutrition Assess - Dietary Evaluation Nutrition/Malnutrition Findings: Nutrition Notes Start: 11/30/20 16:02 Freq: Status: Discharge Protocol: Document 11/30/20 16:02 GB (Rec: 11/30/20 16:10 GB [id number]) Nutrition Notes Need for Assessment generated from: LOS Initial or Follow up Assessment Other Pertinent Diagnosis schizophrenia Current Diet Cardiac/carbohydrate consistent Labs/Tests 11/29: unremarkable (glucose only) Pertinent Medications reviewed Height 6 ft Weight 90.9 kg [place] Body Weight (kg) 80.90 BMI 27.1 Weight change and time frame admit weight Weight Status Appropriate Subjective/Other Information PO intake recorded at 75-100% Percent of energy/protein needs met: PO intake of meals meets 100% EEN Burn Absent Trauma Absent GI Symptoms None Food Allergy No Skin Integrity/Comment no complications reported Current % PO Good (75-100%) Minimum of two criteria No #1 Nutrition Diagnosis No nutrition diagnosis at this time Comments: Good po, no reported significant weight loss Is patient on ventilator? No Is Patient Ambulatory and/or Out of Bed Yes REE-([place]-ambulatory/OOB) [ 2342.600 NUTR.MSJOOB] Kcal/Kg value to use for calculation 21 Approximate Energy Requirements Using 1909 kcal/Kg Calculation Used for Recommendations Kcal/kg Additional Notes Protein: 0.8-1 g/kg @ 91k -91g Fluids: 1ml/kcal or per MD Nutrition Intervention Change Diet Order: continue Nutrition Support: n/a Add Supplement/Snack (indicate name/kcal n/a /protein ) Goal #1 PO intake of meals to continue 75% or greater daily for LOS Follow-Up By: 01/04/21 Revisit per MD consult or patient Sign Off request:
--- NOTE | 2020-12-12 17:57 | Progress Note ---
Assessment and Plan - Patient Problems (1) Nicotine dependence Status: Acute Qualifiers: Nicotine product type: cigarettes Substance use status: in withdrawal Qualified Code(s): F17.213 - Nicotine dependence, cigarettes, with withdrawal Plan to address problem: Nicotine transdermal patch, supportive care, (2) Hypertension Status: Acute Qualifiers: Hypertension type: primary hypertension Qualified Code(s): I10 - Essential (primary) hypertension Plan to address problem: Monitor blood pressure every shift, History Interval history: 50 YO Male with Nicotine Dependence, HTN admitted to [facility] for psychiatric stabilization. No reported nursing events. Patient denies pain. Hospitalist Physical - Constitutional Vitals: Temp Pulse Resp BP Pulse Ox 97.7 F 85 18 107/79 97 12/12/20 07:26 12/12/20 07:26 12/12/20 07:26 12/12/20 07:26 12/12/20 07:26 General appearance: Present: no acute distress - EENT Eyes: Present: PERRL, EOM intact ENT: hearing intact - Neck Neck: Present: supple - Respiratory Respiratory effort: normal Respiratory: bilateral: CTA - Cardiovascular Rhythm: regular - Extremities Extremities: no ischemia Peripheral Pulses: within normal limits - Abdominal General gastrointestinal: soft, non-tender, non-distended - Integumentary Integumentary: Present: clear - Psychiatric Psychiatric: cooperative - Neurologic Neurologic: CNII-XII intact Results - Labs Labs: Laboratory Last Values POC Glucose 99 mg/dL (70-105) 11/26/20 15:11 Arnold/IV: Voiding Method Toilet Nutrition/Malnutrition Assess - Dietary Evaluation Nutrition/Malnutrition Findings: Nutrition Notes Start: 11/30/20 16:02 Freq: Status: Discharge Protocol: Document 11/30/20 16:02 GB (Rec: 11/30/20 16:10 GB [id number]) Nutrition Notes Need for Assessment generated from: LOS Initial or Follow up Assessment Other Pertinent Diagnosis schizophrenia Current Diet Cardiac/carbohydrate consistent Labs/Tests 11/29: unremarkable (glucose only) Pertinent Medications reviewed Height 6 ft Weight 90.9 kg [place] Body Weight (kg) 80.90 BMI 27.1 Weight change and time frame admit weight Weight Status Appropriate Subjective/Other Information PO intake recorded at 75-100% Percent of energy/protein needs met: PO intake of meals meets 100% EEN Burn Absent Trauma Absent GI Symptoms None Food Allergy No Skin Integrity/Comment no complications reported Current % PO Good (75-100%) Minimum of two criteria No #1 Nutrition Diagnosis No nutrition diagnosis at this time Comments: Good po, no reported significant weight loss Is patient on ventilator? No Is Patient Ambulatory and/or Out of Bed Yes REE-([facility]-ambulatory/OOB) [ 2342.600 NUTR.MSJOOB] Kcal/Kg value to use for calculation 21 Approximate Energy Requirements Using 1909 kcal/Kg Calculation Used for Recommendations Kcal/kg Additional Notes Protein: 0.8-1 g/kg @ 91k -91g Fluids: 1ml/kcal or per MD Nutrition Intervention Change Diet Order: continue Nutrition Support: n/a Add Supplement/Snack (indicate name/kcal n/a /protein ) Goal #1 PO intake of meals to continue 75% or greater daily for LOS Follow-Up By: 01/04/21 Revisit per MD consult or patient Sign Off request:
== END 2020-12-12 17:10 | disposition home or self-care (01) | DRG 885 ==
LOC: 3A 10:18 → UNDOADMIN 10:18 → 5A 14:49
PROVIDERS: ADMIT Psychiatry & Neurology Psychiatry; ATTEND Psychiatry & Neurology Psychiatry
DX: F20.9 Schizophrenia, unspecified (principal); F17.213 Nicotine dependence, cigarettes, with withdrawal; I10 Essential (primary) hypertension
CPT/HCPCS: 82962; G0378; J2426